=== PATIENT | male | born 1930 | race Caucasian/White ===

== ENCOUNTER 2016-07-23 17:20 | Inpatient (IN) ==
[2016-07-23] MEDS ORDERED: Levalbuterol Neb 1.25 MG/3 ML ONE (20:18)
[2016-07-23] MEDS ORDERED: Levalbuterol Neb 1.25 MG/3 ML IH ONE (20:20)
[2016-07-23] MEDS ORDERED: Nitroglycerin 0.4 MG TAB.SUBL SL PRN (20:37)
[2016-07-23] MEDS ORDERED: Naloxone 0.4 MG/ML INJ IVP PRN (20:39)
[2016-07-23 20:41] LABS: ABG Base Excess -3.6 mEq/L (-2.0 to 3.0); ABG HCO3 20.3 mEQ/L (21-27); ABG Oxygen Saturation 93 % (95-98); ABG PCO2 32 mmHg (35-45); ABG PH 7.41 pH Units (7.32-7.45); ABG PO2 65 mmHg (85-104); ABG TCO2 21.3 mEq/L (20-26); Blood Gas FiO2 32 %; Blood Gas Liter Flow 3 L/MIN
--- NOTE | 2016-07-23 20:47 | Internal Med History&Physical ---
Date of Encounter: 07/23/16 Time of Encounter: 20:41 Assessment and Plan (1) Atrial fibrillation with RVR Current visit: Yes Status: Acute Patient apparently had bradycardia at [facility] followed by tachycardia. Patient is mostly in atrial fib with RVR at this time. Treatment with Cardizem infusion. Will check a TSH level. Will consult manager government. Request echocardiogram. (2) Acute respiratory failure Current visit: Yes Status: Acute Likely secondary to pneumonia. Supplement Oxygen. Qualifiers: Respiratory failure complication: hypoxia Qualified Code(s): J96.01 - Acute respiratory failure with hypoxia (3) Pneumonia Current visit: Yes Status: Acute Patient has dysphagia and gastroesophageal reflux. I suspect patient may have aspirated. He also has a history of MRSA positive status - will treat with vancomycin, aztreonam and metronidazole (patient is allergic to penicillin). Sputum cultures and blood cultures. Qualifiers: Pneumonia type: aspiration pneumonia Aspiration pneumonia type: unspecified Laterality: left Lung location: lower lobe of lung Qualified Code(s): J69.0 - Pneumonitis due to inhalation of food and vomit (4) Dementia Current visit: Yes Status: Chronic Continue his home medications including donepezil and memantine. Qualifiers: Dementia type: unspecified type Dementia behavioral disturbance: without behavioral disturbance Qualified Code(s): F03.90 - Unspecified dementia without behavioral disturbance (5) Cirrhosis of liver Current visit: Yes Status: Chronic CT scan done at [facility] reported cirrhosis of liver, portal hypertension and ascites. Supportive care at this time - may need GI consult and medications prior to discharge. Qualifiers: Hepatic cirrhosis type: unspecified hepatic cirrhosis Ascites presence: with ascites Qualified Code(s): K74.60 - Unspecified cirrhosis of liver (6) Hypertension Current visit: Yes Status: Chronic Hold antihypertensive medications at this time. Qualifiers: Hypertension type: essential hypertension Qualified Code(s): I10 - Essential (primary) hypertension (7) UTI (urinary tract infection) Current visit: Yes Status: Acute Urinalysis in the [facility] was abnormal. Pt has beltran catheter - Urine cultures and will treat with aztreonam. Qualifiers: Urinary tract infection type: site unspecified Hematuria presence: without hematuria Qualified Code(s): N39.0 - Urinary tract infection, site not specified (8) Bronchitis Current visit: Yes Status: Acute Treat with levalbuterol; solumedrol. Continue antibiotics (9) DVT prophylaxis Current visit: Yes Status: Acute Subcutaneous heparin Internal Medicine - H&P: HPI Chief complaint: Cardiac arrhythmia Admitted From: Intrahospital Transfer Plans for Post Hospital Care: Home History of present illness: Mr. Burnett is a 86 year old male with past medical history significant for dementia, normocytic anemia, Fermin's esophagus, hypertension, schizophrenia, secondary parkinsonism, age related macular degeneration, carcinoma prostate, degenerative disc disease, myeloproliferative disorder. He is transferred from [facility] for cardiac arrhythmia. Patient is not able to give a significant clinical details possibly due to dementia. I have reviewed the records sent with the patient from the [facility]. Reports chest pain in the central chest, but is not able to characterize. Denies any radiation. Reports shortness of breath. Denies cough or expectation. Denies abdominal pain, nausea and vomiting. Detailed review of systems was difficult/not possible due to his dementia. Pt was not able to give family history. Reviewed the records from [facility] and summarized as below: Patient had some dysphagia and was evaluated by speech therapist at the [facility]. He was recommended dysphagia diet ground and nectar thick liquids; crush pills in applesauce bolus; constant supervision; upright position, slow feeding rate, used bolus size; avoid gulping liquids and extending the head and swallowing pills and to be careful with mixed consistencies taking liquids by liquids and solid bolus trials. Chest x-ray reported nonspecific right upper lobe opacity. Consider CT for further evaluation. Lungs are hypoinflated. Bilateral lower lobe linear atelectasis is present. CT scan of chest reported diffuse narrowing of the airways with mucus and diffuse bronchial wall thickening. This is consistent with bronchitis. Bronchoscopy may be helpful for further evaluation. Stable emphysema and scarring. Abnormal esophageal thickening at the base which may represent esophagitis and reflux, neoplasm cannot be excluded and endoscopy should be considered for further evaluation. Findings consistent with cirrhosis with ascites, splenomegaly and suspected lattice as such we did to portal hypertension. Labs showed from 07/22 and 07/23 showed: WBC of 18.9, hemoglobin 9.6, hematocrit 30, platelets 252. Urinalysis is positive for nitrates and leukocyte esterase. Serum sodium 140, potassium 3.5, glucose 113, BNP 24, creatinine 1.4, calcium 8, albumin 3, proBNP 2118, [address] [facility] appointed Burton Newman as guarding of person harmony dated 10/19/2007. I have contacted SCU at [facility] for the contact numbers for the guardian (Burton Newman) - [phone]; [phone]. I have called both the numbers at 21:52 but could not reach him on both the numbers. Discussed code status with the pt - he wants Full code. Past Med Surg Social Fam HX - Past Medical History Medical history: coronary artery disease, dementia, GERD, GI bleed, hypertension Psychiatric history: schizophrenia, other - Past Surgical History Surgical History: no surgical history - Social History Smoking Status: Never smoker Smokeless Tobacco Status: No Alcohol use: none Drug use: none Internal Medicine - H&P: Meds Amlodipine [Norvasc] 7.5 mg PO DAILY 12/02/15 [History] Anagrelide HCl [Agrylin] 1 mg PO BID 12/02/15 [History] Cholecalciferol (Vitamin D3) 400 units PO DAILY 12/02/15 [History] Donepezil [Aricept] 10 mg PO HS 12/02/15 [History] Ferrous Gluconate 325 mg PO DAILY 12/02/15 [History] Melatonin [Melatin] 3 mg PO HS 12/02/15 [History] Memantine [Namenda] 5 mg PO BID 12/02/15 [History] Metoprolol [Lopressor] 12.5 mg PO BID 12/02/15 [History] Pantoprazole Sodium [Protonix] 20 mg PO BID 12/02/15 [History] RisperiDONE [Risperidone Odt] 3 mg PO HS 12/02/15 [History] Tamsulosin [Flomax] 0.4 mg PO DAILY 12/02/15 [History] Acetaminophen [Non-Aspirin] 650 mg PO Q4H PRN 07/23/16 [History] Ipratropium/Albuterol Neb [Duoneb] 3 ml IH Q6HR 07/23/16 [History] Potassium Chloride [K-Tab ER] 20 meq PO DAILY 07/23/16 [History] Sennosides/Docusate Sodium [Senna-Docusate Sodium Tablet] 2 tab PO DAILY [History] Allergies Penicillins [PCN] Allergy (Verified 12/02/15 09:34) See Comments Unknown reaction. ROS unobtainable: due to mental status All Systems PM: A 10-system review of systems was attempted but could not be completed due to his dementia - Constitutional Vitals: Temp Pulse Resp BP Pulse Ox 98.0 F 56 26 145/86 95 07/23/16 18:45 07/23/16 20:20 07/23/16 20:25 07/23/16 20:05 07/23/16 20:25 Exam: General: Tremulous. Pt has tremors at rest and with activity HEENT: Oral mucosa is moist. No conjunctival palor or scleral icterus Neck: No obvious neck swellings Lungs: Occasional wheeze present. Bilateral basal crackles present Cardiac: Irregular rate and rhythm. No significant murmurs Abdomen: Distended, non tender. Bowel sounds present Genitourinary: Beltran catheter present Neurological: Alert and able to follow commands. No gross localizing deficits Psych: Not aggressive or agitated Extremities: no significant leg edema Skin: No generalized rash Internal Med - H&P Results - Labs CBC & Chem 7: 07/23/16 21:20 07/23/16 21:20 - EKG Data -: EKG Interpreted by Myself - EKG Data EKG comments: Atrial fibrillation with RVR with heart rate 130 07/23/16 22:50 - Impressions ITS Impressions Chest X-Ray 07/23/16 20:34 IMPRESSION: Alveolar airspace opacities in the left lower lobe. D/ / Carlos Pratt MD / Carlos Pratt MD Interpreting Provider: Carlos Pratt MD
[2016-07-23] MEDS ORDERED: Vancomycin 1,000 MG in D5% in Water 250 ML IVPB SCH (21:08)
[2016-07-23 21:28] LABS: Basophils % 0.3 %; Eosinophils # 0.1 K/mcL (0.0-0.6); Eosinophils % 1.2 %; Hematocrit 30.7 % (37.5-50.1); Hemoglobin 9.8 g/dL (12.9-16.9); Immature Granulocytes % 1.3 % (0-4); Lymphocytes # 0.4 K/mcL (0.6-4.6); Lymphocytes % 3.8 %; Mean Corpuscular HGB Conc 31.9 g/dL (31.6-35.5); Mean Corpuscular Hemoglobin 25.1 pg (28.0-33.3); Mean Corpuscular Volume 78.5 fL (83.0-100.0); Mean Platelet Volume 12.1 fL (9.4-12.4); Monocytes # 0.8 K/mcL (0.0-1.3); Monocytes % 7.3 %; Neutrophils # 9.8 K/mcL (1.6-8.9); Platelet Count 251 K/mcL (140-400); Red Blood Count 3.91 M/mcL (4.19-5.50); Red Cell Distribution Width 17.8 % (11.5-14.5); Segmented Neutrophils % 86.1 %
[2016-07-23 21:41] LABS: Calcium 8.6 mg/dL (8.6-10.8); Magnesium 1.6 mg/dL (1.6-2.6); Potassium 4.5 mEq/L (3.5-4.5)
[2016-07-23] MEDS ORDERED: Levalbuterol Neb 1.25 MG/3 ML IH PRN (21:46)
[2016-07-23] MEDS ORDERED: 0.9 % Sodium Chloride 500 ML IVC ONE (21:46)
[2016-07-23 22:05] LABS: Thyroid Stimulating Hormone 3.042 mcIU/mL (0.350-4.840)
[2016-07-23] MEDS: risperiDONE 1 MG TABLET PO SCH (22:22)
[2016-07-23] MEDS ORDERED: Vancomycin 1,250 MG in D5% in Water 250 ML IVPB ONE (22:30)
[2016-07-23] MEDS ORDERED: Magnesium Sulfate 1 GM in D5% in Water 100 ML IVPB ONE (22:41)
[2016-07-23] MEDS: 0.9 % Sodium Chloride 1,000 ML IVC SCH (23:41)
[2016-07-23] MEDS: *HR* Heparin 5,000 UNIT/ML VIAL SQ SCH (23:42)
[2016-07-24 00:55] LABS: INR 1.9; Prothrombin Time 20.4 Seconds (9.4-12.1)
[2016-07-24 01:01] LABS: Albumin 2.7 g/dL (3.5-5.0); Albumin/Globulin Ratio 0.7 (1.1-2.2); Bilirubin,Total 0.6 mg/dL (0.2-1.2); Calcium 8.8 mg/dL (8.6-10.8); Globulin 3.8 g/dL (2.4-3.5); Potassium 3.8 mEq/L (3.5-4.5); Total Protein 6.5 g/dL (6.0-8.3)
[2016-07-24 01:04] LABS: Bilirubin,Urine Negative (Negative); Blood,Urine Large (Negative); Clarity,Urine Turbid (Clear); Color,Urine Yellow (Yellow); Glucose,Urine (UA) Normal (Normal); Ketones,Urine 15 mg/dL (Negative); Leukocyte Esterase,Urine Large (Negative); Nitrite,Urine Negative (Negative); PH,Urine 5.5 pH Units (5.0-8.0); Protein,Urine 100 mg/dL (Neg-Trace); Specific Gravity,Urine 1.022 (1.010-1.025); Urobilinogen,Urine Normal (Normal)
[2016-07-24 01:07] LABS: Bacteria,Urine Many per hpf (None-Few); Hyaline Casts,Urine None Seen per lpf (None-Few); RBC,Urine 30-50 per hpf (0-3); Squamous Epithelial Cell,Urine Many per lpf (None-Few); WBC,Urine TNTC per hpf (0-3)
[2016-07-24] MEDS: *HR* Heparin 5,000 UNIT/ML VIAL SQ SCH (06:14)
[2016-07-24] MEDS: Lactobacillus 1 EACH CAP.SPRINK PO SCH ×2 (08:09→20:15)
[2016-07-24] MEDS: Pantoprazole 40 MG VIAL IVP SCH (08:57)
--- NOTE | 2016-07-24 10:00 | Cardiology Consult Note ---
Date of Encounter: 07/24/16 Time of Encounter: 09:30 Assessment and Plan (1) Atrial fibrillation with RVR Current Visit: Yes Status: Acute Patient found to have Afib RVR, HR initially 140s-150s, currently between 95- 110. Etiology likely secondary to pneumonia. CHADS/Vasc score: 3- moderate to high risk. Per [place] records, patient has no prior hx of Afib listed. Patient is on Cardizem drip running at 7.5 TSH normal- 3.042 Echo pending. Continue ABX for pneumonia. (2) Hypertension Current Visit: Yes Status: Chronic Antihypertensive meds on hold at this time. Qualifiers: Hypertension type: essential hypertension Qualified Code(s): I10 - Essential (primary) hypertension Discussion w patient/family: The assessment and plan as outlined above was discussed with the patient and/or family members who expressed understanding and agreement. All questions were answered. Thank you for involving us in the care of your patient. Please call with any questions. History of Present Illness Consult date: 07/23/16 Requesting physician: Kalen Thompson Consult reason: Afib RVR Chief complaint: cardiac arrhythmia History of present illness: Mr. Burnett is a 86 year old male with PMHx of dementia, normocytic anemia, barrets esophagus, HTN, schizophrenia, secondary parkinsonism, macular degeneration, prostate cancer, degeneraative disc disease, myoproliferative disorder. Patient was transferred from [facility] for cardiac arrhythmia. Patient is a poor historian. Patient was bardycardic at [facility], and had tachycardia afterwards. Patient was found to have pneumonia, possibly due to aspiration. He is on vanc, aztreonam, metronidazole. Past Med Surg Social Fam HX - Past Medical History Medical history: coronary artery disease, dementia, GERD, GI bleed, hypertension Psychiatric history: schizophrenia, other - Past Surgical History Surgical History: no surgical history - Social History Smoking Status: Never smoker Smokeless Tobacco Status: No Alcohol use: none Drug use: none Medications and Allergies Amlodipine [Norvasc] 7.5 mg PO DAILY 12/02/15 [History] Anagrelide HCl [Agrylin] 1 mg PO BID 12/02/15 [History] Cholecalciferol (Vitamin D3) 400 units PO DAILY 12/02/15 [History] Donepezil [Aricept] 10 mg PO HS 12/02/15 [History] Ferrous Gluconate 325 mg PO DAILY 12/02/15 [History] Melatonin [Melatin] 3 mg PO HS 12/02/15 [History] Memantine [Namenda] 5 mg PO BID 12/02/15 [History] Metoprolol [Lopressor] 12.5 mg PO BID 12/02/15 [History] Pantoprazole Sodium [Protonix] 20 mg PO BID 12/02/15 [History] RisperiDONE [Risperidone Odt] 3 mg PO HS 12/02/15 [History] Tamsulosin [Flomax] 0.4 mg PO DAILY 12/02/15 [History] Acetaminophen [Non-Aspirin] 650 mg PO Q4H PRN 07/23/16 [History] Ipratropium/Albuterol Neb [Duoneb] 3 ml IH Q6HR 07/23/16 [History] Potassium Chloride [K-Tab ER] 20 meq PO DAILY 07/23/16 [History] Sennosides/Docusate Sodium [Senna-Docusate Sodium Tablet] 2 tab PO DAILY [History] Allergies Penicillins [PCN] Allergy (Verified 12/02/15 09:34) See Comments Unknown reaction. All Systems Review: A 10-system review of systems was performed and is negative for pertinent findings except as documented above in the HPI. - Constitutional Constitutional: no chills, no fatigue, no fever(s), no headache(s) - Cardiovascular Cardiovascular: no chest pain at rest, no leg edema, no syncope - Respiratory Respiratory: other (reports shortness of breath. ) - Neurological Neurological: no dizziness Physical Examination Vital Signs, Last 4 Hours Temp Pulse Resp BP Pulse Ox 07/24/16 08:59 128/64 07/24/16 07:30 98 07/24/16 07:16 98.5 F 96 18 134/67 92 L General: Conversant, Other (patient is a poor historian. ) HEENT: Atraumatic, Normocephaly Neck: No JVD Cardiac: Other (irregular rhythm. ) Abdomen: Soft, Non-Tender Musculoskeletal: No Chest Wall Tenderness Extremities: No Clubbing, No Cyanosis, No Edema Results 07/23/16 21:20 07/24/16 00:39 Lab Results 07/23/16 07/23/16 07/23/16 21:20 21:20 21:20 WBC 11.4 H Hgb 9.8 L Hct 30.7 L Plt Count 251 INR Sodium 138 Potassium 4.5 Chloride 108 Carbon Dioxide 17 L BUN 26 Creatinine 1.37 H Glucose 173 H Calcium 8.6 Magnesium 1.6 Total Bilirubin AST ALT Alkaline Phosphatase Troponin I 0.01 TSH 3.042 07/24/16 07/24/16 00:39 00:39 WBC Hgb Hct Plt Count INR 1.9 Sodium 138 Potassium 3.8 Chloride 110 H Carbon Dioxide 19 BUN 27 H Creatinine 1.42 H Glucose 173 H Calcium 8.8 Magnesium Total Bilirubin 0.6 AST 16 ALT 8 Alkaline Phosphatase 105 Troponin I TSH Consult Discharge Plan - Plan [facility]errals: [facility] [Primary Care Provider] -
--- NOTE | 2016-07-24 11:51 | Internal Med Progress Note ---
Date of Encounter: 07/24/16 Time of Encounter: 11:51 - Assessment and plan (1) Acute respiratory failure Current Visit: Yes Status: Acute Assessment and plan: likely due to Pneumonia and tachycardia; continue supplemental O2 as needed and wean down FiO2 ad tolerated; Qualifiers: Respiratory failure complication: hypoxia Qualified Code(s): J96.01 - Acute respiratory failure with hypoxia (2) Atrial fibrillation with RVR Current Visit: Yes Status: Acute Assessment and plan: New-onset, could be due to underlying Pneumonia; Noted to be on IV Cardizem drip , will start oral Cardizem and taper down the drip. Will start IV Heparin drip for anticoagulation; f/up Echocardiogram and Cardiology consult; TSH noted to be normal; (3) Pneumonia Current Visit: Yes Status: Acute Assessment and plan: Imaging shows left upper lobe in filtrates; continue broad spectrum IV antibiotics- Vancomycin, Aztreonam and Flagyl for possible component of aspiration; supportive care and supplemental O2; f/up blood cultures; Swallow evaluation completed and recommend pureed diet with nectar thick liquids; Qualifiers: Pneumonia type: due to unspecified organism Laterality: left Lung location: upper lobe of lung Qualified Code(s): J18.1 - Lobar pneumonia, unspecified organism (4) UTI (urinary tract infection) Current Visit: Yes Status: Acute Assessment and plan: continue IV ANTIBIOTICS and f/up urine culture; Qualifiers: Urinary tract infection type: site unspecified Hematuria presence: without hematuria Qualified Code(s): N39.0 - Urinary tract infection, site not specified (5) Cirrhosis of liver Current Visit: Yes Status: Chronic Qualifiers: Hepatic cirrhosis type: unspecified hepatic cirrhosis Ascites presence: with ascites Qualified Code(s): K74.60 - Unspecified cirrhosis of liver (6) Dementia Current Visit: Yes Status: Chronic Assessment and plan: supportive care and fall precautions; continue home meds; Qualifiers: Dementia type: Alzheimer's disease Alzheimer's disease onset: late-onset Dementia behavioral disturbance: without behavioral disturbance Qualified Code (s): G30.1 - Alzheimer's disease with late onset; F02.80 - Dementia in other diseases classified elsewhere without behavioral disturbance (7) Hypertension Current Visit: Yes Status: Chronic Qualifiers: Hypertension type: essential hypertension Qualified Code(s): I10 - Essential (primary) hypertension - Subjective Interval history: Able to tell me his name and thinks that he is in the [facility] in [place]. Reports no pain, shortness of breath, dysphagia. Does not remember why he came to the hospital. - Constitutional Vitals: Temp Pulse Resp BP Pulse Ox 98.5 F 98 18 128/64 92 L 07/24/16 07:16 07/24/16 07:30 07/24/16 07:16 07/24/16 08:59 07/24/16 07:16 General appearance: Present: A&O X 1 - Respiratory Respiratory exam: Present: CTAB. Absent: accessory muscle use, rales, rhonchi, wheezes - Cardiovascular Cardiovascular exam: Present: irregular rhythm, +S1, +S2. Absent: diastolic murmur, gallop, rubs, systolic murmur - GI/Abdominal GI/Abdominal exam: Present: distended (With tympanic note), normal bowel sounds , soft, no peritoneal signs. Absent: tenderness - Extremities Exam Extremities exam: Present: full ROM, warm, radial pulses palpable and symetrical. Absent: calf tenderness, cyanotic, pedal edema - Neurological Exam Neurological exam: Present: CN II-XII intact, no focal deficits. Absent: pronater drift, facial droop, speech deficit - Skin Skin exam: Present: dry, intact Internal Medicine: Result - Labs CBC & Chem 7: 07/24/16 12:20 07/24/16 00:39 Labs: Short CBC 07/23/16 Range/Units 21:20 WBC 11.4 H (4.3-11.1) K/mcL Hgb 9.8 L (12.9-16.9) g/dL Hct 30.7 L (37.5-50.1) % Plt Count 251 (140-400) K/mcL Neutrophils # 9.8 H (1.6-8.9) K/mcL BMP 07/23/16 07/24/16 21:20 00:39 Sodium 138 138 Potassium 4.5 3.8 Chloride 108 110 H Carbon Dioxide 17 L 19 BUN 26 27 H Creatinine 1.37 H 1.42 H Glucose 173 H 173 H Calcium 8.6 8.8 Cardiac Enzymes 07/23/16 Range/Units 21:20 Troponin I 0.01 (0-0.03) ng/mL Liver Function 07/24/16 Range/Units 00:39 Total Bilirubin 0.6 (0.2-1.2) mg/dL AST 16 (5-34) Units/L ALT 8 (0-55) Units/L Alkaline Phosphatase 105 (38-126) Units/L Albumin 2.7 L (3.5-5.0) g/dL Urine 07/24/16 Range/Units 00:50 Urine Color Yellow (Yellow) Urine Clarity Turbid A (Clear) Urine pH 5.5 (5.0-8.0) pH Units Ur Specific Viking 1.022 (1.010-1.025) Urine Protein 100 H (Neg-Trace) mg/dL Urine Glucose (UA) Normal (Normal) mg/dL - ABG Interpretation ABG results: ABG ABG pH 7.41 pH Units (7.32-7.45) 07/23/16 20:25 ABG pCO2 32 mmHg (35-45) L 07/23/16 20:25 ABG pO2 65 mmHg (85-104) L 07/23/16 20:25 ABG O2 Saturation 93 % (95-98) L 07/23/16 20:25 PT/INR, D-dimer PT 20.4 Seconds (9.4-12.1) H 07/24/16 00:39 - Impressions Impressions Chest X-Ray 07/23/16 20:34 IMPRESSION: Alveolar airspace opacities in the left lower lobe. D/ / Carlos Pratt MD / Carlos Pratt MD Interpreting Provider: Carlos Pratt MD Consult Discharge Plan - Plan [facility]errals: [facility] [Primary Care Provider] -
[2016-07-24] MEDS ORDERED: *HR* Heparin 5,000 UNIT/ML VIAL IVP ONE (11:54)
[2016-07-24] MEDS ORDERED: *HR* Heparin 5,000 UNIT/ML VIAL IVP PRN ×2 (11:54)
[2016-07-24] MEDS ORDERED: Heparin 25,000 UNIT/500 ML D5W 25,000 UNIT/500 ML MLS IVC SCH (12:00)
[2016-07-24 12:58] LABS: INR 1.8; Prothrombin Time 19.7 Seconds (9.4-12.1)
[2016-07-24 13:00] LABS: Activated Partial Thrombo Time 31.9 Seconds (26.0-36.0)
[2016-07-24] MEDS ORDERED: Vancomycin 1,000 MG in D5% in Water 250 ML IVPB ONE ×2 (13:00→13:07)
[2016-07-24 13:04] LABS: Hematocrit 29.1 % (37.5-50.1); Hemoglobin 9.4 g/dL (12.9-16.9); Mean Corpuscular HGB Conc 32.3 g/dL (31.6-35.5); Mean Corpuscular Hemoglobin 25.4 pg (28.0-33.3); Mean Corpuscular Volume 78.6 fL (83.0-100.0); Mean Platelet Volume 12.5 fL (9.4-12.4); Platelet Count 255 K/mcL (140-400); Red Cell Distribution Width 17.8 % (11.5-14.5)
[2016-07-24] MEDS: Aztreonam 1,000 MG in D5% in Water (Mini-Bag+) 100 ML IVPB SCH ×2 (13:17→20:16)
[2016-07-24] MEDS: 0.9 % Sodium Chloride 1,000 ML IVC SCH (13:18)
[2016-07-24] MEDS: MetroNIDAZOLE 500 MG/100 ML 500 MG/100 ML BAG IVPB SCH ×2 (13:42→20:15)
--- NOTE | 2016-07-24 14:16 | ECHO - Doppler Report ---
Echocardiogram Name: Gen Burnett Date of Study: 07/24/2016 Date: 1930 Ht: 70.0 in Medical Record#: [id number] Age: 86 Wt: 136.0 lb Gender: Male BSA: 1.77 Order #: [id number] Location: [facility] Room #: 2N09 Reading Physician: Marc An MD, [facility] Programming Internship: Robin Andrews RN Ordering Physician: Ivelisse Thompson MD Primary Physician: [facility] Indications: Arrhythmia Impressions: Sinus rhythm with frequent PACs and occasional PVCs. Normal LV systolic function, LVEF 60%. Mild left ventricular diastolic dysfunction. Dilated right ventricle with normal function. Mildly dilated left atrium. Mildly dilated right atrium. Mild tricuspid regurgitation. Mild pulmonary hypertension. Estimated RVSP = 41 mmHg. Left Ventricular Wall Motion: Rest Echo Findings All wall segments showed normal motion. Findings: Study Quality * Technically adequate exam. ECG Findings * Sinus rhythm with frequent PACs and occasional PVCs. Left Ventricle * Normal LV systolic function, LVEF 60%. * Normal LV chamber size and wall thickness. * Mild left ventricular diastolic dysfunction. Right Ventricle * Dilated right ventricle with normal function. Left Atrium * Mildly dilated left atrium. Right Atrium * Mildly dilated right atrium. Aorta * Normally sized aortic root. Pericardium * There is no pericardial effusion present. IVC * The IVC is mildly dilated. * > 50% respiratory change Tricuspid Valve * Normal tricuspid valve structure. * No tricuspid stenosis. * Mild tricuspid regurgitation. * Mild pulmonary hypertension. Estimated RVSP = 41 mmHg. Aortic Valve * Trileaflet aortic valve. * Moderately sclerotic aortic valve leaflets. * No aortic stenosis. * Trace aortic regurgitation. Pulmonic Valve * Pulmonic valve is not well visualized. * No pulmonic stenosis. * No pulmonic regurgitation. Mitral Valve * Mildly calcified mitral valve leaflets. * No mitral stenosis. * Trace mitral regurgitation. History Hypertension 08/09/2014 a Previous Echo was performed. Measurements: BP: 128/ 64 2D Normal Values IVSd: 1.00 cm 0.6 - 1.0 cm LVIDd: 4.30 cm 3.7 - 5.6 cm LVPWd: 1.00 cm 0.6 - 1.1 cm LVIDs: 3.00 cm 1.5 - 3.6 cm AO: 3.20 cm < 4.0 cm %FS: 30.20 cm >25 % LA volume: 62 Mitral Valve Peak E:.89 m/sec Peak A:1.26 m/sec E/A Ratio:0.7 Tricuspid Valve TV Regurg Peak Grad: 33.00mmHg TV Regurg Peak Roman: 2.85m/sec Updated by Marc An MD, [facility] on 07/24/2016 2:10:11 PM electronically signed on 07/24/2016 2:11:52 PM with status of Final Wall Motion Rothman: 1=Normal, 2=Hypokinesis, 3=Akinesis, 4=Dyskinesis, 5=Aneurysmal, 6=Hyperkinetic, X=Not Visualized (Blank)=Missing
[2016-07-24] MEDS ORDERED: D5% in Water 250 ML ONE (15:39)
--- NOTE | 2016-07-24 16:06 | Electrocardiograph Report ---
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
[2016-07-24] MEDS: risperiDONE 1 MG TABLET PO SCH (20:15)
[2016-07-24] MEDS ORDERED: Aztreonam 1,000 MG in D5% in Water (Mini-Bag+) 100 ML IVPB SCH (21:08)
[2016-07-24] MEDS ORDERED: MetroNIDAZOLE 500 MG/100 ML 500 MG/100 ML BAG IVPB SCH (21:08)
[2016-07-24] MEDS ORDERED: MethylPREDNISolone 40 MG/ML VIAL IVP SCH (23:12)
[2016-07-25] MEDS: Aztreonam 1,000 MG in D5% in Water (Mini-Bag+) 100 ML IVPB SCH ×3 (03:47→20:34)
[2016-07-25] MEDS: 0.9 % Sodium Chloride 1,000 ML IVC SCH ×2 (03:47→09:23)
[2016-07-25] MEDS: MetroNIDAZOLE 500 MG/100 ML 500 MG/100 ML BAG IVPB SCH (03:48)
[2016-07-25 06:11] LABS: BUN/Creatinine Ratio 19 (6-26); Calcium 7.8 mg/dL (8.6-10.8); Carbon Dioxide 19 mEq/L (19-29); Chloride 105 mEq/L (98-109); Glucose 152 mg/dL (70-99); Osmolality,Calculated 284 (280-300); Sodium 135 mEq/L (136-145); eGFR For African Americans > 60 (> 60); eGFR For Non-African Americans > 60 (> 60)
[2016-07-25 06:12] LABS: Blood Urea Nitrogen 16 mg/dL (8-26); Potassium 2.7 mEq/L (3.5-4.5)
[2016-07-25 07:04] LABS: Basophils # 0.1 K/mcL (0.0-0.2); Basophils % 0.4 %; Eosinophils # 0.2 K/mcL (0.0-0.6); Eosinophils % 1.3 %; Hemoglobin 8.8 g/dL (12.9-16.9); Immature Granulocytes % 2.2 % (0-4); Immature Platelets 18.1 % (1.1-6.1); Lymphocytes # 0.5 K/mcL (0.6-4.6); Lymphocytes % 3.7 %; Mean Corpuscular HGB Conc 32.6 g/dL (31.6-35.5); Mean Corpuscular Hemoglobin 24.7 pg (28.0-33.3); Mean Corpuscular Volume 75.8 fL (83.0-100.0); Mean Platelet Volume 12.4 fL (9.4-12.4); Monocytes # 0.9 K/mcL (0.0-1.3); Monocytes % 5.8 %; Platelet Count 269 K/mcL (140-400); Red Blood Count 3.56 M/mcL (4.19-5.50); Red Cell Distribution Width 17.6 % (11.5-14.5); Segmented Neutrophils % 86.6 %
[2016-07-25 07:11] LABS: Neutrophils # 12.7 K/mcL (1.6-8.9)
[2016-07-25] MEDS ORDERED: Aminoglycoside Consult 1 EACH MC ONE (07:42)
[2016-07-25 08:02] LABS: Platelet Estimate Normal (Normal); Reactive Lymphocytes Present (Not Present)
--- NOTE | 2016-07-25 09:02 | Cardiology Progress Note ---
Date of Encounter: 07/25/16 Time of Encounter: 08:23 Assessment and Plan (1) Multifocal atrial tachycardia Current Visit: Yes Status: Acute MAT, HR initially 140s-150s, currently between 90-105. Etiology likely secondary to pneumonia. Echo from yesterday showed sinus rhyth with frequent PACs and occasional PVCs, normal LV systolic function, LVEF 60%, mild LV diastolic dysfunction, dilated RV with normal function. TSH normal- 3.042 Echo pending. Continue ABX for pneumonia. Plan: stopped Heparin drip, switched to SQ heparin Changed Cardizem to PO 180 daily. HR was running in 90s this AM, continue to titrate cardizem as needed. No further interventions needed at this time. Cardiology signing off. Please re-consult PRN (2) Hypertension Current Visit: Yes Status: Chronic management per primary team. Qualifiers: Hypertension type: essential hypertension Qualified Code(s): I10 - Essential (primary) hypertension Discussion w patient/family: The assessment and plan as outlined above was discussed with the patient and/or family members who expressed understanding and agreement. All questions were answered. Thank you for involving us in the care of your patient. Please call with any questions. Subjective Principal diagnosis: multifocal atrial tachycardia Interval history: 86 year old male evaluated at bedside. Patient was sitting up in bed and eating while he was getting speech evaluation. He denies chest pain. Reports some mild nausea, but has not had any vomiting. Objective Vital Signs, Last 4 Hours Temp Pulse Resp BP Pulse Ox 07/25/16 07:42 97.7 F 92 20 134/77 98 General: Conversant, No Apparent Distress HEENT: Atraumatic, Normocephaly Neck: No JVD Cardiac: Other (irregular rhythm) Lungs: Normal Breath Sounds Neuro: Alert and responsive Abdomen: Soft, Non-Tender Extremities: No Cyanosis, No Edema Results 07/25/16 06:42 07/25/16 04:44 Lab Results 07/24/16 07/24/16 07/24/16 12:20 12:20 18:53 WBC 17.2 H D Hgb 9.4 L Hct 29.1 L Plt Count 255 INR 1.8 APTT 31.9 46.4 H Sodium Potassium Chloride Carbon Dioxide BUN Creatinine Glucose Calcium 07/25/16 07/25/16 04:44 06:42 WBC 14.7 H Hgb 8.8 L Hct 27.0 L Plt Count 269 INR APTT Sodium 135 L Potassium 2.7 L D Chloride 105 Carbon Dioxide 19 BUN 16 D Creatinine 0.85 Glucose 152 H Calcium 7.8 L Consult Discharge Plan - Plan [facility]errals: [facility] [Primary Care Provider] -
[2016-07-25] MEDS: Lactobacillus 1 EACH CAP.SPRINK PO SCH ×2 (09:22→20:35)
[2016-07-25] MEDS: predniSONE 20 MG TABLET PO SCH (09:22)
[2016-07-25] MEDS: Pantoprazole 40 MG VIAL IVP SCH (09:22)
[2016-07-25] MEDS: Diltiazem CD (24hr) 180 MG CAPSULE PO SCH (09:22)
--- NOTE | 2016-07-25 10:07 | Internal Med Progress Note ---
Date of Encounter: 07/25/16 Time of Encounter: 10:05 - Assessment and plan (1) Acute respiratory failure Current Visit: Yes Status: Resolved Assessment and plan: Currently saturating well on room air. Qualifiers: Respiratory failure complication: hypoxia Qualified Code(s): J96.01 - Acute respiratory failure with hypoxia (2) Atrial fibrillation with RVR Current Visit: Yes Status: Ruled-out Assessment and plan: Cardiology consult and follow-up appreciated. Patient seems to have multiple PACs and PVCs and possible multifocal atrial tachycardia, atrial fibrillation has been ruled out. Discontinue anticoagulation with IV heparin drip. Heart rate seems to be better controlled than yesterday. Cardizem changed to Cardizem CD 180 mg daily. Echocardiogram shows preserved ejection fraction, mild left ventricular diastolic dysfunction, mild biatrial dilation, mild tricuspid regurgitation and pulmonary hypertension. Continue telemetry monitoring and supportive care. (3) Pneumonia Current Visit: Yes Status: Acute Assessment and plan: Imaging shows left upper lobe infiltrates; improving oxygen requirements. Blood cultures remain negative so far. Continue aztreonam and hold vancomycin and Flagyl at this time. supportive care ; Swallow evaluation repeated, advanced to mechanical soft diet with nectar thick liquids, which is his baseline. Continue bronchodilators as needed and taper down oral steroids as tolerated. Patient has no documented COPD. Qualifiers: Pneumonia type: due to unspecified organism Laterality: left Lung location: upper lobe of lung Qualified Code(s): J18.1 - Lobar pneumonia, unspecified organism (4) UTI (urinary tract infection) Current Visit: Yes Status: Acute Assessment and plan: Preliminary urine culture grows gram-negative rods. Continue IV aztreonam for now and follow up final culture results. Qualifiers: Urinary tract infection type: site unspecified Hematuria presence: without hematuria Qualified Code(s): N39.0 - Urinary tract infection, site not specified (5) Cirrhosis of liver Current Visit: Yes Status: Chronic Qualifiers: Hepatic cirrhosis type: unspecified hepatic cirrhosis Ascites presence: with ascites Qualified Code(s): K74.60 - Unspecified cirrhosis of liver (6) Dementia Current Visit: Yes Status: Chronic Assessment and plan: supportive care and fall precautions; continue home meds; Qualifiers: Dementia type: Alzheimer's disease Alzheimer's disease onset: late-onset Dementia behavioral disturbance: without behavioral disturbance Qualified Code (s): G30.1 - Alzheimer's disease with late onset; F02.80 - Dementia in other diseases classified elsewhere without behavioral disturbance (7) Hypertension Current Visit: Yes Status: Chronic Qualifiers: Hypertension type: essential hypertension Qualified Code(s): I10 - Essential (primary) hypertension (8) Hypokalemia Current Visit: Yes Status: Acute Assessment and plan: Replace with oral and IV potassium chloride and repeat potassium in a.m. - Subjective Interval history: Reports feeling well. No chest pain, shortness of breath or palpitations. - Constitutional Vitals: Temp Pulse Resp BP Pulse Ox 97.7 F 92 20 134/77 98 07/25/16 07:42 07/25/16 07:42 07/25/16 07:42 07/25/16 07:42 07/25/16 07:42 General appearance: Present: A&O X 1 - Respiratory Respiratory exam: Present: CTAB. Absent: accessory muscle use, rales, rhonchi, wheezes - Cardiovascular Cardiovascular exam: Present: irregular rhythm, RRR, +S1, +S2, tachycardia. Absent: diastolic murmur, gallop, rubs, systolic murmur - GI/Abdominal GI/Abdominal exam: Present: normal bowel sounds, soft, no peritoneal signs. Absent: distended, tenderness - Extremities Exam Extremities exam: Present: full ROM, warm, radial pulses palpable and symetrical. Absent: calf tenderness, cyanotic, pedal edema Internal Medicine: Result - Labs CBC & Chem 7: 07/25/16 06:42 07/25/16 04:44 Labs: Short CBC 07/24/16 07/25/16 Range/Units 12:20 06:42 WBC 17.2 H D 14.7 H (4.3-11.1) K/mcL Hgb 9.4 L 8.8 L (12.9-16.9) g/dL Hct 29.1 L 27.0 L (37.5-50.1) % Plt Count 255 269 (140-400) K/mcL Neutrophils # 12.7 H (1.6-8.9) K/mcL BMP 07/25/16 04:44 Sodium 135 L Potassium 2.7 L D Chloride 105 Carbon Dioxide 19 BUN 16 D Creatinine 0.85 Glucose 152 H Calcium 7.8 L - ABG Interpretation ABG results: ABG ABG pH 7.41 pH Units (7.32-7.45) 07/23/16 20:25 ABG pCO2 32 mmHg (35-45) L 07/23/16 20:25 ABG pO2 65 mmHg (85-104) L 07/23/16 20:25 ABG O2 Saturation 93 % (95-98) L 07/23/16 20:25 PT/INR, D-dimer PT 19.7 Seconds (9.4-12.1) H 07/24/16 12:20 Consult Discharge Plan - Plan [facility]errals: [facility] [Primary Care Provider] -
[2016-07-25] MEDS: Potassium Chloride Elixir 20 MEQ/15 ML UDC PO SCH ×2 (10:27→13:42)
[2016-07-25 10:37] LABS: Magnesium 1.4 mg/dL (1.6-2.6)
[2016-07-25] MEDS ORDERED: Magnesium Sulfate 2 GM in D5% in Water 100 ML IVPB ONE (17:53)
[2016-07-25] MEDS: *HR* Heparin 5,000 UNIT/ML VIAL SQ SCH (17:55)
[2016-07-25] MEDS: risperiDONE 1 MG TABLET PO SCH (20:35)
[2016-07-26 05:18] LABS: INR 1.4; Prothrombin Time 15.6 Seconds (9.4-12.1)
[2016-07-26 05:20] LABS: Activated Partial Thrombo Time 25.2 Seconds (26.0-36.0)
[2016-07-26 06:24] LABS: BUN/Creatinine Ratio 18 (6-26); Blood Urea Nitrogen 16 mg/dL (8-26); Calcium 8.4 mg/dL (8.6-10.8); Carbon Dioxide 24 mEq/L (19-29); Chloride 105 mEq/L (98-109); Glucose 154 mg/dL (70-99); Magnesium 1.9 mg/dL (1.6-2.6); Osmolality,Calculated 288 (280-300); Potassium 3.2 mEq/L (3.5-4.5); Sodium 137 mEq/L (136-145); eGFR For African Americans > 60 (> 60); eGFR For Non-African Americans > 60 (> 60)
[2016-07-26] MEDS: Diltiazem CD (24hr) 180 MG CAPSULE PO SCH (08:23)
[2016-07-26] MEDS: Lactobacillus 1 EACH CAP.SPRINK PO SCH ×2 (08:23→20:47)
[2016-07-26] MEDS: predniSONE 20 MG TABLET PO SCH (08:24)
[2016-07-26] MEDS ORDERED: Potassium Chloride Elixir 20 MEQ/15 ML UDC PO ONE (09:51)
--- NOTE | 2016-07-26 10:10 | Internal Med Progress Note ---
Date of Encounter: 07/26/16 Time of Encounter: 10:09 - Assessment and plan (1) Acute respiratory failure Current Visit: Yes Status: Resolved Qualifiers: Respiratory failure complication: hypoxia Qualified Code(s): J96.01 - Acute respiratory failure with hypoxia (2) Atrial fibrillation with RVR Current Visit: Yes Status: Ruled-out Assessment and plan: Continues to have intermittent asymptomatic tachycardia. Cardiology consult and follow-up appreciated. Patient seems to have multiple PACs and PVCs and possible multifocal atrial tachycardia, atrial fibrillation has been ruled out. Continue Cardizem. Continue telemetry monitoring and supportive care. (3) Pneumonia Current Visit: Yes Status: Acute Assessment and plan: Imaging shows left upper lobe infiltrates; improving oxygen requirements. Blood cultures remain negative so far. Continue aztreonam; supportive care ; Swallow evaluation repeated, advanced to mechanical soft diet with nectar thick liquids, which is his baseline. Continue bronchodilators as needed and oral steroids. Patient has no documented COPD. Qualifiers: Pneumonia type: due to unspecified organism Laterality: left Lung location: upper lobe of lung Qualified Code(s): J18.1 - Lobar pneumonia, unspecified organism (4) UTI (urinary tract infection) Current Visit: Yes Status: Acute Assessment and plan: Preliminary urine culture grows gram-negative rods. Continue IV aztreonam for now and follow up final culture results. Qualifiers: Urinary tract infection type: site unspecified Hematuria presence: without hematuria Qualified Code(s): N39.0 - Urinary tract infection, site not specified (5) Cirrhosis of liver Current Visit: Yes Status: Chronic Qualifiers: Hepatic cirrhosis type: unspecified hepatic cirrhosis Ascites presence: with ascites Qualified Code(s): K74.60 - Unspecified cirrhosis of liver (6) Dementia Current Visit: Yes Status: Chronic Assessment and plan: supportive care and fall precautions; continue home meds; Physical therapy evaluation noted, recommend placement in retirement facility. career services manager on board. Qualifiers: Dementia type: Alzheimer's disease Alzheimer's disease onset: late-onset Dementia behavioral disturbance: without behavioral disturbance Qualified Code (s): G30.1 - Alzheimer's disease with late onset; F02.80 - Dementia in other diseases classified elsewhere without behavioral disturbance (7) Hypertension Current Visit: Yes Status: Chronic Qualifiers: Hypertension type: essential hypertension Qualified Code(s): I10 - Essential (primary) hypertension (8) Hypokalemia Current Visit: Yes Status: Acute Assessment and plan: Improving. Continue oral and IV potassium chloride supplements. Also noted to have hypomagnesemia, will give IV magnesium sulfate. - Subjective Interval history: Reports feeling well. No chest pain, shortness of breath or palpitations. Sitting up in chair today. - Constitutional Vitals: Temp Pulse Resp BP Pulse Ox 98.2 F 117 18 146/97 97 07/26/16 07:27 07/26/16 07:27 07/26/16 07:27 07/26/16 07:27 07/26/16 07:27 General appearance: Present: A&O X 1 - Respiratory Respiratory exam: Present: CTAB. Absent: accessory muscle use, rales, rhonchi, wheezes - Cardiovascular Cardiovascular exam: Present: RRR, +S1, +S2. Absent: diastolic murmur, gallop, rubs, systolic murmur - GI/Abdominal GI/Abdominal exam: Present: normal bowel sounds, soft, no peritoneal signs. Absent: distended, tenderness - Extremities Exam Extremities exam: Present: full ROM, warm, radial pulses palpable and symetrical. Absent: calf tenderness, cyanotic, pedal edema Internal Medicine: Result - Labs CBC & Chem 7: 07/25/16 06:42 07/26/16 04:30 Labs: BMP 07/25/16 07/26/16 04:44 04:30 Sodium 135 L 137 Potassium 2.7 L D 3.2 L Chloride 105 105 Carbon Dioxide 19 24 BUN 16 D 16 Creatinine 0.85 0.91 Glucose 152 H 154 H Calcium 7.8 L 8.4 L - ABG Interpretation ABG results: ABG ABG pH 7.41 pH Units (7.32-7.45) 07/23/16 20:25 ABG pCO2 32 mmHg (35-45) L 07/23/16 20:25 ABG pO2 65 mmHg (85-104) L 07/23/16 20:25 ABG O2 Saturation 93 % (95-98) L 07/23/16 20:25 PT/INR, D-dimer PT 15.6 Seconds (9.4-12.1) H 07/26/16 04:31 Consult Discharge Plan - Plan [facility]errals: [facility] [Primary Care Provider] -
[2016-07-26] MEDS: *HR* Heparin 5,000 UNIT/ML VIAL SQ SCH ×2 (19:53→19:59)
[2016-07-26] MEDS: Aztreonam 1,000 MG in D5% in Water (Mini-Bag+) 100 ML IVPB SCH ×3 (19:53→20:46)
[2016-07-26] MEDS: risperiDONE 1 MG TABLET PO SCH (20:47)
[2016-07-26] MEDS ORDERED: 0.9 % Sodium Chloride 500 ML IVC ONE (22:02)
[2016-07-26] MEDS ORDERED: Albuterol 2.5 MG/3 ML NEBULIZER IH PRN (22:04)
[2016-07-26] MEDS: Ipratropium/Albuterol Neb 3 ML IH SCH (23:00)
[2016-07-26 23:09] LABS: VBG HCO3 20.8 mEq/L (21-27); VBG PH 7.42 pH Units (7.32-7.42)
[2016-07-26] MEDS: Aztreonam 2,000 MG in D5% in Water (Mini-Bag+) 100 ML IVPB SCH (23:11)
[2016-07-26 23:43] LABS: Prolactin 50.71 ng/mL (3.46-19.40)
[2016-07-26 23:46] LABS: Adenovirus Not Detected (Not Detect); Bordetella Pertussis Not Detected (Not Detect); Chlamydophila pneumoniae Not Detected (Not Detect); Coronavirus 229E Not Detected (Not Detect); Coronavirus HKU1 Not Detected (Not Detect); Coronavirus NL63 Not Detected (Not Detect); Coronavirus OC43 Not Detected (Not Detect); Human Metapneumovirus Not Detected (Not Detect); Human Rhinovirus/Enterovirus Not Detected (Not Detect); Influenza A Subtype 2009 H1 Not Detected (Not Detect); Influenza A Untypeable Not Detected (Not Detect); Influenza B Not Detected (Not Detect); Mycoplasma pneumoniae Not Detected (Not Detect); Parainfluenza Virus 1 Not Detected (Not Detect); Parainfluenza Virus 2 Not Detected (Not Detect); Parainfluenza Virus 3 Not Detected (Not Detect); Parainfluenza Virus 4 Not Detected (Not Detect); Respiratory Syncytial Virus Not Detected (Not Detect)
[2016-07-27] MEDS: Ipratropium/Albuterol Neb 3 ML IH SCH ×4 (04:19→23:42)
[2016-07-27 04:44] LABS: INR 1.3; Prothrombin Time 14.3 Seconds (9.4-12.1)
[2016-07-27 04:53] LABS: Calcium 7.9 mg/dL (8.6-10.8); Potassium 3.3 mEq/L (3.5-4.5)
[2016-07-27] MEDS: *HR* Heparin 5,000 UNIT/ML VIAL SQ SCH ×2 (05:54→20:41)
[2016-07-27] MEDS: Aztreonam 2,000 MG in D5% in Water (Mini-Bag+) 100 ML IVPB SCH (05:55)
[2016-07-27] MEDS ORDERED: Magnesium Sulfate 2 GM in D5% in Water 100 ML IVPB ONE (08:55)
[2016-07-27] MEDS ORDERED: COLISTIN IVPB SCH (09:00)
[2016-07-27] MEDS ORDERED: Levofloxacin 500 MG/100 ML 500 MG/100 ML BAG IVPB SCH (09:00)
[2016-07-27] MEDS ORDERED: SODIUM CHLORIDE 0.9% IVPB SCH (09:00)
--- NOTE | 2016-07-27 09:09 | Internal Med Progress Note ---
Date of Encounter: 07/27/16 Time of Encounter: 09:07 - Assessment and plan (1) MANUEL (acute kidney injury) Current Visit: Yes Status: Acute Assessment and plan: Patient noted to have worsening serum creatinine along with mild lactic acidosis. He also has elevated sodium and chloride. Will start IV hydration with half-normal saline and continue to monitor urine output closely. Will Place Victoria catheter to monitor urine output given his dementia and urinary incontinence. Antibiotics to be dosed according to current GFR. (2) Acute respiratory failure Current Visit: Yes Status: Acute Assessment and plan: Likely related to aspiration and tachycardia. Continue IV antibiotics, supplemental oxygen and supportive care. Aspiration precautions. We will obtain CT chest to better evaluate lungs. I have discussed patient's current clinical condition with his guardian, Mr.Jeffrey Newman, and he verbalized understanding, confirmed that the patient has no living Will, however he is willing to consider DNR/DNI. We will consult palliative care team to assist with further discussions. High risk for complications. Qualifiers: Respiratory failure complication: hypoxia Qualified Code(s): J96.01 - Acute respiratory failure with hypoxia (3) Atrial fibrillation with RVR Current Visit: Yes Status: Ruled-out Assessment and plan: Patient continues to have tachycardia. Reviewed telemetry strips that show irregular and narrow complex tachycardia, unclear if this is atrial fibrillation or MAT, also has multiple PACs and PVCs. Will discuss with cardiology. We will consider increasing her by mouth Cardizem. Continue telemetry monitoring and supportive care. (4) Pneumonia Current Visit: Yes Status: Acute Assessment and plan: Reviewed chest x-rays from admission and from last night. This shows significant improvement in left lower lobe infiltrates but noted to have some bibasal infiltrates. Patient has been on IV aztreonam. We will start IV Levaquin and clindamycin at this time. Initial blood cultures remain negative. We will repeat blood cultures. Continue supplemental oxygen. Qualifiers: Pneumonia type: due to unspecified organism Laterality: left Lung location: lower lobe of lung Qualified Code(s): J18.1 - Lobar pneumonia, unspecified organism (5) UTI (urinary tract infection) Current Visit: Yes Status: Acute Assessment and plan: Urine culture grows multi drug-resistant Klebsiella pneumoniae, sensitive to Bactrim and gentamicin. Has been on IV aztreonam for 4 days. Antibiotic choice is difficult at this time given his renal dysfunction. Will discuss with infectious diseases. Qualifiers: Urinary tract infection type: site unspecified Hematuria presence: without hematuria Qualified Code(s): N39.0 - Urinary tract infection, site not specified (6) Cirrhosis of liver Current Visit: Yes Status: Chronic Qualifiers: Hepatic cirrhosis type: unspecified hepatic cirrhosis Ascites presence: with ascites Qualified Code(s): K74.60 - Unspecified cirrhosis of liver (7) Dementia Current Visit: Yes Status: Chronic Assessment and plan: supportive care and fall precautions; continue home meds; dysphagia and aspiration are likely related to underlying dementia. Physical therapy evaluation noted, recommend placement in group home facility. banking services officer on board. Qualifiers: Dementia type: Alzheimer's disease Alzheimer's disease onset: late-onset Dementia behavioral disturbance: without behavioral disturbance Qualified Code (s): G30.1 - Alzheimer's disease with late onset; F02.80 - Dementia in other diseases classified elsewhere without behavioral disturbance (8) Hypertension Current Visit: Yes Status: Chronic Qualifiers: Hypertension type: essential hypertension Qualified Code(s): I10 - Essential (primary) hypertension (9) Hypokalemia Current Visit: Yes Status: Acute Assessment and plan: Continue to replace with oral potassium chloride. - Subjective Interval history: Noted to be lethargic today. Sitting up in bed but not answering much. Reports not feeling too well today. Unable to swallow well, possibly aspirating. Noted to require supplemental oxygen today. - Constitutional Vitals: Temp Pulse Resp BP Pulse Ox 98.6 F 118 20 151/69 94 L 07/27/16 07:39 07/27/16 07:39 07/27/16 07:39 07/27/16 07:39 07/27/16 07:39 General appearance: Present: A&O X 1, mild distress - Respiratory Respiratory exam: Present: rales (Coarse breath sounds bilaterally). Absent: accessory muscle use, rhonchi, wheezes - Cardiovascular Cardiovascular exam: Present: irregular rhythm, +S1, +S2, tachycardia. Absent: diastolic murmur, gallop, rubs, systolic murmur - GI/Abdominal GI/Abdominal exam: Present: distended, normal bowel sounds, soft, no peritoneal signs. Absent: tenderness - Extremities Exam Extremities exam: Present: full ROM, warm, radial pulses palpable and symetrical. Absent: calf tenderness, cyanotic, pedal edema - Neurological Exam Neurological exam: Present: altered, CN II-XII intact, no focal deficits. Absent: pronater drift, facial droop, speech deficit - Skin Skin exam: Present: dry, intact Internal Medicine: Result - Labs CBC & Chem 7: 07/25/16 06:42 07/27/16 04:15 Labs: BMP 07/27/16 04:15 Sodium 142 Potassium 3.3 L Chloride 110 H Carbon Dioxide 18 L BUN 46 H D Creatinine 1.67 H D Glucose 156 H Calcium 7.9 L Cardiac Enzymes 07/26/16 Range/Units 22:58 Troponin I 0.01 (0-0.03) ng/mL - ABG Interpretation ABG results: ABG ABG pH 7.41 pH Units (7.32-7.45) 07/23/16 20:25 ABG pCO2 32 mmHg (35-45) L 07/23/16 20:25 ABG pO2 65 mmHg (85-104) L 07/23/16 20:25 ABG O2 Saturation 93 % (95-98) L 07/23/16 20:25 PT/INR, D-dimer PT 14.3 Seconds (9.4-12.1) H 07/27/16 04:15 - Impressions Impressions Chest X-Ray 07/26/16 22:00 IMPRESSION: Improvement with continued bibasilar airspace disease remaining. No pleural effusion D/ / Oracio Aponte MD / Oracio Aponte MD Interpreting Provider: Oracio Aponte MD Consult Discharge Plan - Plan [facility]errals: [facility] [Primary Care Provider] -
[2016-07-27] MEDS: Diltiazem CD (24hr) 180 MG CAPSULE PO SCH (09:28)
[2016-07-27] MEDS: predniSONE 20 MG TABLET PO SCH (09:29)
[2016-07-27] MEDS: Lactobacillus 1 EACH CAP.SPRINK PO SCH ×2 (09:29→20:41)
[2016-07-27] MEDS: Potassium Chloride Elixir 20 MEQ/15 ML UDC PO SCH ×2 (09:35→11:56)
--- NOTE | 2016-07-27 10:42 | Palliative - Consult Note ---
<Marc Vale - Last Filed: 07/27/16 10:39> Date of Encounter: 07/27/16 Time of Encounter: 10:30 - Assessment and Plan (1) Goals of care, counseling/discussion Current Visit: Yes Status: Acute Assessment and plan: Patient is pleasantly confused with underlying dementia. Patient has a guardian , Burton Newman. Attempts were made this morning to contact the guardian to discuss CODE STATUS however he was unable to be reached. We will attempt again this afternoon to discuss CODE STATUS with him. Patient will remain a full code at this time until we can have these discussions. In reviewing social work notes, [facility] and the plan of care is [facility], as the [facility] he was previously at feels like they cannot care for him any longer. (2) Acute respiratory failure Current Visit: Yes Status: Acute Assessment and plan: Likely secondary to pneumonia. Further management per primary team. Qualifiers: Respiratory failure complication: hypoxia Qualified Code(s): J96.01 - Acute respiratory failure with hypoxia (3) Dementia Current Visit: Yes Status: Chronic Assessment and plan: Moderate to severe. Continue current medical therapy per primary team. Qualifiers: Dementia type: Alzheimer's disease Alzheimer's disease onset: late-onset Dementia behavioral disturbance: without behavioral disturbance Qualified Code (s): G30.1 - Alzheimer's disease with late onset; F02.80 - Dementia in other diseases classified elsewhere without behavioral disturbance (4) Cirrhosis of liver Current Visit: Yes Status: Chronic Qualifiers: Hepatic cirrhosis type: unspecified hepatic cirrhosis Ascites presence: with ascites Qualified Code(s): K74.60 - Unspecified cirrhosis of liver (5) MANUEL (acute kidney injury) Current Visit: Yes Status: Acute Palliative-CN HPI - Data of Consult Patient: new to practice Consult date: 07/27/16 Requesting Physician: Laquita Chavarria MD Primary [facility] Provider: [facility] - Consult Narrative Reason for consult: Code Status discussion History of present illness: Mr. Burnett is a 86 year old male with history of dementia, [facility] with RVR. Patient is also currently being treated for pneumonia. Patient has moderate to severe underlying dementia and is cared for at a [facility] fdc. Patient is awake and alert to person only. He is minimally verbal and was only able to relay that he is not in pain. He did not appear to be in any acute distress. CC: Laquita Chavarria MD Past Med Surg Social Fam HX - Past Medical History Medical history: coronary artery disease, dementia, GERD, GI bleed, hypertension Psychiatric history: schizophrenia, other - Past Surgical History Surgical History: no surgical history - Social History Smoking Status: Never smoker Smokeless Tobacco Status: No Alcohol use: none Drug use: none Medications and Allergies Amlodipine [Norvasc] 7.5 mg PO DAILY 12/02/15 [History] Anagrelide HCl [Agrylin] 1 mg PO BID 12/02/15 [History] Cholecalciferol (Vitamin D3) [Vitamin D] 400 unit PO DAILY 12/02/15 [History] Donepezil [Aricept] 10 mg PO HS 12/02/15 [History] Ferrous Gluconate 325 mg PO DAILY 12/02/15 [History] Melatonin [Melatin] 3 mg PO HS 12/02/15 [History] Memantine [Namenda] 5 mg PO BID 12/02/15 [History] Metoprolol [Lopressor] 12.5 mg PO BID 12/02/15 [History] Pantoprazole Sodium [Protonix] 20 mg PO BID 12/02/15 [History] RisperiDONE [Risperidone Odt] 3 mg PO HS 12/02/15 [History] Tamsulosin [Flomax] 0.4 mg PO DAILY 12/02/15 [History] Acetaminophen [Non-Aspirin] 650 mg PO Q4H PRN 07/23/16 [History] Ipratropium/Albuterol Neb [Duoneb] 3 ml IH Q6HR 07/23/16 [History] Potassium Chloride [K-Tab ER] 20 meq PO DAILY 07/23/16 [History] Sennosides/Docusate Sodium [Senna-Docusate Sodium Tablet] 2 tab PO DAILY [History] Ketoconazole Shampoo [Nizoral Shampoo] 1 appl TP WESA 07/24/16 [History] Oseltamivir [Tamiflu] 75 mg PO DAILY 07/24/16 [History] Vit C/E/Zn/Coppr/Lutein/Zeaxan [Preservision Areds 2 Softgel] 1 tab PO DAILY [History] Allergies Penicillins [PCN] Allergy (Verified 12/02/15 09:34) See Comments Unknown reaction. ROS unobtainable: due to mental status Palliative Care-Exam - Constitutional Vitals: Temp Pulse Resp BP Pulse Ox 98.6 F 118 20 151/69 94 L 07/27/16 07:39 07/27/16 07:39 07/27/16 07:39 07/27/16 07:39 07/27/16 07:39 General appearance: Present: no acute distress - Head Head Exam: Present: atraumatic, normal inspection, normocephalic - ENT ENT exam: Present: mucous membranes moist - Respiratory Additional comments: Coarse breath sounds throughout. No wheezes noted. - Cardiovascular Cardiovascular exam: Present: irregular rhythm, tachycardia. Absent: systolic murmur - GI/Abdominal Exam GI/Abdominal exam: Present: distended, normal bowel sounds, soft. Absent: tenderness - Extremities Exam Extremities exam: Absent: pedal edema - Neurological Exam Neurological exam: Present: alert (Oriented to place only.), no focal deficits Internal Medicine - CN: Reslt - Labs CBC & Chem 7: 07/25/16 06:42 07/27/16 04:15 Labs: BMP 07/27/16 04:15 Sodium 142 Potassium 3.3 L Chloride 110 H Carbon Dioxide 18 L BUN 46 H D Creatinine 1.67 H D Glucose 156 H Calcium 7.9 L Cardiac Enzymes 07/26/16 Range/Units 22:58 Troponin I 0.01 (0-0.03) ng/mL - ABG Interpretation ABG results: ABG ABG pH 7.41 pH Units (7.32-7.45) 07/23/16 20:25 ABG pCO2 32 mmHg (35-45) L 07/23/16 20:25 ABG pO2 65 mmHg (85-104) L 07/23/16 20:25 ABG O2 Saturation 93 % (95-98) L 07/23/16 20:25 PT/INR, D-dimer PT 14.3 Seconds (9.4-12.1) H 07/27/16 04:15 - Impressions Impressions Chest X-Ray 07/26/16 22:00 IMPRESSION: Improvement with continued bibasilar airspace disease remaining. No pleural effusion D/ / Oracio Aponte MD / Oracio Aponte MD Interpreting Provider: Oracio Aponte MD Consult Discharge Plan - Plan [facility]errals: [facility]Primary Care Provider[facility] - ([facility] WILL SEE PATIENT THERE. NO PCP APPOINTMENT NEEDED) Palliative Quality Palliative Quality: Screen for Code Status: NA (Waiting to discuss with guardian ), Screen for Goals of Care: NA (Waiting to discuss with guardian), Screen for Pain: Yes, If Pain Regimen Started, Initiate Bowel Regimen: NA, Screen for Nausea/Vomitting: No Code Status: 07/23/16 20:39 Resuscitation Status: Active [RES] Routine Comment: Resuscitation Status: Full Code <Corona Walters L - Last Filed: 07/27/16 14:37> - Assessment and Plan (1) Goals of care, counseling/discussion Current Visit: Yes Status: Acute Palliative-CN HPI - Data of Consult Requesting Physician: Laquita Chavarria MD Primary Care Provider: PCP [facility] - Consult Narrative History of present illness: Mr. Burnett is a 86 year old male CC: Laquita Chavarria MD Palliative Care-Exam - Constitutional Vitals: Temp Pulse Resp BP Pulse Ox 97.9 F 100 24 160/100 91 L 07/27/16 11:34 07/27/16 14:15 07/27/16 12:04 07/27/16 11:34 07/27/16 14:15 Internal Medicine - CN: Reslt - Labs CBC & Chem 7: 07/25/16 06:42 07/27/16 04:15 Labs: BMP 07/27/16 04:15 Sodium 142 Potassium 3.3 L Chloride 110 H Carbon Dioxide 18 L BUN 46 H D Creatinine 1.67 H D Glucose 156 H Calcium 7.9 L Cardiac Enzymes 07/26/16 Range/Units 22:58 Troponin I 0.01 (0-0.03) ng/mL - ABG Interpretation ABG results: ABG ABG pH 7.41 pH Units (7.32-7.45) 07/23/16 20:25 ABG pCO2 32 mmHg (35-45) L 07/23/16 20:25 ABG pO2 65 mmHg (85-104) L 07/23/16 20:25 ABG O2 Saturation 93 % (95-98) L 07/23/16 20:25 PT/INR, D-dimer PT 14.3 Seconds (9.4-12.1) H 07/27/16 04:15 - Impressions Impressions Chest X-Ray 07/26/16 22:00 IMPRESSION: Improvement with continued bibasilar airspace disease remaining. No pleural effusion D/ / Oracio Aponte MD / Oracio Aponte MD Interpreting Provider: Oracio Aponte MD Chest CT 07/27/16 10:00 IMPRESSION: 1. Multifocal pneumonia, worst in the bilateral bases. 2. Gas is identified in the liver of unclear etiology. Finding may represent portal venous gas versus pneumobilia. Recommend dedicated CT abdomen and pelvis (with contrast if possible) as clinically warranted. D/ / 07/27/2016 11:04:16 Radha Barrios MD / Macrina Gross Interpreting Provider: Radha Barrios MD - Attending Attestation I examined this patient and my medical decision-making was reviewed with the [employer]ENE[employer] DEPARTMENT MANAGER/PA/Advanced Practice Nurse/Resident Physician. I agree with the documented findings, disposition and treatment plan as described except to the extent set forth below. Called patient guardian, Burton Newman,, who was reachable at the [place] prosecutor's office phone number [phone] and left a message for him to call me back, at this time I am still awaiting his call. Message was left on his other phone [phone]. [facility]. Quite a social work notes it may be possible to get him back to the acute medicine side. At this time palliative care is doing nothing but trying to reach since guardian to discuss CODE STATUS we will follow from a distance over the weekend and try again come Saturday. Palliative Quality Code Status: 07/23/16 20:39 Resuscitation Status: Active [RES] Routine Comment: Resuscitation Status: Full Code
--- NOTE | 2016-07-27 11:05 | Cardiology Progress Note ---
Date of Encounter: 07/27/16 Time of Encounter: 10:55 Assessment and Plan (1) Multifocal atrial tachycardia Current Visit: Yes Status: Acute MAT, HR fluctuating between 80s-130s upon exam. Etiology likely secondary to multifocal pneumonia, possible aspiration. Echo from 07/24/16 showed sinus rhythm with frequent PACs and occasional PVCs, normal LV systolic function, LVEF 60%, mild LV diastolic dysfunction, dilated RV with normal function. TSH normal- 3.042 CT chest was significant for multifocal pneumonia. Patient also has UTI with culture significant for Klebsiella pneumonia MDRO, blood cultures showed no growth. Plan: Telemetry showed Min HR 53, Max 190s, average HR 113, 10 beat run of Vtach. Treatment for MAT will be to treat the underlying cause, which in this case would be pneumonia. Please check and replace electrolytes as needed. Continue with IV antibiotics, supplemental oxygen, and supportive care. Resumed patient's home dose of Metoprolol 12.5mg BID. Continue Cardizem PO 180 daily and monitor. (2) Hypertension Current Visit: Yes Status: Chronic blood pressures well controlled at this time. management per primary team. Qualifiers: Hypertension type: essential hypertension Qualified Code(s): I10 - Essential (primary) hypertension Discussion w patient/family: The assessment and plan as outlined above was discussed with the patient and/or family members who expressed understanding and agreement. All questions were answered. Thank you for involving us in the care of your patient. Please call with any questions. Subjective Principal diagnosis: multifocal atrial tachycardia Interval history: 86 year old male evaluated at bedside. Patient appears more ill today upon exam. He was laying in bed sleeping, minimally responsive. Able to answer yes/ no questions after asked multiple times. Objective Vital Signs, Last 4 Hours Temp Pulse Resp BP Pulse Ox 07/27/16 07:39 98.6 F 118 20 151/69 94 L General: Other (patient appears very ill, in moderate distress. ) HEENT: Atraumatic, Normocephaly Neck: No JVD Cardiac: Other (irregular rhythm. ) Lungs: Other (rhonchi, wheezing. ) Neuro: Other (alert and minimally responsive. ) Abdomen: Soft, Non-Tender Extremities: No Cyanosis, No Edema Results 07/25/16 06:42 07/27/16 04:15 Lab Results 07/26/16 07/26/16 07/27/16 22:58 22:58 04:15 INR 1.3 Sodium Potassium Chloride Carbon Dioxide BUN Creatinine Glucose Calcium Troponin I 0.01 B-Natriuretic Peptide 202 H 07/27/16 04:15 INR Sodium 142 Potassium 3.3 L Chloride 110 H Carbon Dioxide 18 L BUN 46 H D Creatinine 1.67 H D Glucose 156 H Calcium 7.9 L Troponin I B-Natriuretic Peptide Consult Discharge Plan - Plan [facility]errals: [facility] [Primary Care Provider] - (PT IS FROM [facility] THEY WILL SEE PATIENT THERE. NO PCP APPOINTMENT NEEDED)
[2016-07-27] MEDS ORDERED: Cefepime HCl 1,000 MG in D5% in Water (Mini-Bag+) 100 ML IVPB SCH (13:00)
--- NOTE | 2016-07-27 13:03 | Infectious Disease Consult ---
Date of Encounter: 07/27/16 Time of Encounter: 11:30 Assessment and Plan (1) Sepsis Status: Acute Assessment and plan: The patient had two SIRS criteria plus MANUEL on admission. Likely secondary to UTI and PNA. The patient continues to have tachycardia. WBC has not been checked since . Check CBC now. Blood culture drawn 07/23/16 is NGTD 05/13 set. Qualifiers: Sepsis type: sepsis due to unspecified organism Qualified Code(s): A41.9 - Sepsis, unspecified organism (2) UTI (urinary tract infection) Status: Acute Assessment and plan: Causative organism MDR K. pneumoniae, sensitive only to gentamicin and bactrim. Likely secondary to incomplete emptying of the bladder and incontinence/wearing depends. Treatment of the patient's UTI poses some challenges due to the limited choice of antibiotics and the patient's comorbid conditions. Gentamicin and bactrim are both quite nephrotoxic and given the patient's MANUEL, we need to be judicious in using either of these antibiotics. Another potential antibiotic we could use is Colistin, but again, the nephrotoxicity associated with this drug makes it a poor choice. Gentamicin bladder irrigations are not useful in this case due to the patient still making urine. Start Bactrim IV. Dose discussed with Manuela Sparks. Dose for a creatinine clearance of ~25. Victoria catheter placed this morning to monitor I's and O's closely and completely empty the bladder. Monitor renal function closely and dose-adjust antibiotics based on changes in the patient's creatinine clearance. Duration of treatment depends on the clinical picture. Qualifiers: Urinary tract infection type: site unspecified Hematuria presence: without hematuria Qualified Code(s): N39.0 - Urinary tract infection, site not specified (3) Pneumonia Status: Acute Assessment and plan: HCAP Causative organism unclear. Concern for possible aspiration despite the patient passing swallow evaluation. CXR on admission showed LLL airspace disease. CT of the chest today shows bilateral mutifocal PNA. Get sputum culture if the patient is able to give an adequate specimen. Send urine for S. pneumo and Legionella UAT. Continue Levaquin for now, but discontinue if S. pneumo and Legionella testing is negative. Discontinue Clindamycin. Given the patient's advanced age and comorbid conditions, he is at high risk for C. diff with any antibiotic use, more so with the use of clindamycin. Start Cefepime 1 gram IV Q24H (dosed for CrCl ~25) . Unable to use Zosyn due to documented PCN allergy and patient unable to confirm or deny this. Start Bactrim as above for MRSA coverage in addition to MDR K. pneumoniae coverage. Start Flagyl 500mg IV TID for anaerobic (aspiration) coverage. Duration of treatment depends on the clinical picture. Monitor renal function closely and dose-adjust antibiotics. Qualifiers: Pneumonia type: due to unspecified organism Laterality: left Lung location: lower lobe of lung Qualified Code(s): J18.1 - Lobar pneumonia, unspecified organism (4) MANUEL (acute kidney injury) Status: Acute Assessment and plan: Creatinine up to 1.67 today after being normal yesterday. Only one wet attends documented yesterday. Not sure if this is accurate or not. Victoria catheter placed this morning to obtain accurate Is and Os. Likely multifactorial: sepsis + incomplete emptying of the bladder + ?CKD + nephrotoxic medications Repeat labs in the AM. Consider nephrology consult if renal function continues to worsen. Avoid nephrotoxic agents. Unfortunately, we have to use Bactrim (or other nephrotoxic agent) to adequately treat the patient's infections. We will aggressively monitor the patient's renal function and dose-adjust the antibiotics as needed based on his creatinine clearance. (5) Acute respiratory failure Status: Acute Assessment and plan: Likely secondary to PNA. On O2 via nasal cannula at this time. Management per the primary team. Qualifiers: Respiratory failure complication: hypoxia Qualified Code(s): J96.01 - Acute respiratory failure with hypoxia (6) Bronchitis Status: Acute (7) Cirrhosis of liver Status: Chronic Assessment and plan: Noted on CT of the chest. CT of the abdomen and pelvis pending. Consider GI consult for further evaluation. Qualifiers: Hepatic cirrhosis type: unspecified hepatic cirrhosis Ascites presence: with ascites Qualified Code(s): K74.60 - Unspecified cirrhosis of liver (8) Multifocal atrial tachycardia Status: Acute Assessment and plan: Likely secondary to sepsis. Continues to have episodes of sustained tachycardia. Cardiology consulted and following. (9) Hypokalemia Status: Resolved (10) Dementia Status: Chronic Qualifiers: Dementia type: Alzheimer's disease Alzheimer's disease onset: late-onset Dementia behavioral disturbance: without behavioral disturbance Qualified Code (s): G30.1 - Alzheimer's disease with late onset; F02.80 - Dementia in other diseases classified elsewhere without behavioral disturbance (11) Decubitus ulcer of right ischium, stage 3 Status: Chronic Assessment and plan: Clinically does not appear infected. Continue aggressive wound care. (12) Pressure ulcer of sacral region, stage 3 Status: Acute Assessment and plan: Clinically does not appear infected. Continue aggressive wound care. (13) Hypertension Status: Chronic Qualifiers: Hypertension type: essential hypertension Qualified Code(s): I10 - Essential (primary) hypertension Infectious Disease HPI - Data of Consult Patient: new to practice Consult date: 07/27/16 Requesting Physician: Laquita Chavarria MD [facility] Provider[facility] - Consult Narrative Reason for consult: MDR K. pneumoniae UTI History of present illness: Mr. Burnett is a 86 year old male with a past medical history of dementia, hypertension, secondary Parkinson is on, macular degeneration, CAD, GERD, and GI bleed. The patient was admitted to the hospital July 23 for cardiac arrhythmia. We are consulted July 27, 2016 for further evaluation and treatment recommendations regarding [id number] organism in the urine. The patient is a 86-year-old male with past medical history as stated above. The patient is a poor historian and cannot provide any information regarding the events leading up to his hospitalization. All the information is obtained from the medical record. Apparently, the patient was transferred from the local [facility] with complaints of a cardiac arrhythmia that involved both bradycardia and tachycardia. The patient was transferred here for cardiology evaluation. Upon arrival, patient had a chest x-ray completed that showed a left lower lobe alveolar airspace disease. The patient also had a CT of the chest at the [facility] that showed findings consistent with bronchitis as well as esophageal thickening, cirrhosis with ascites, splenomegaly, and portal hypertension. Upon arrival here, the patient had a white blood cell count of 17.2 thousand. He also had an acute kidney injury. Urinalysis obtained here was positive for pyuria. Culture grew out [id number] Klebsiella pneumoniae , sensitive only to gentamicin and Bactrim. Since admission, the patient's leukocytosis has improved, but clinically the patient has somewhat worsened according to other provider notes. Repeat chest x-ray yesterday showed improved infiltrates, but a CT of the chest today revealed bilateral multifocal pneumonia and possible gas in the liver. A CT abdomen and pelvis has been ordered and is currently pending. On arrival, the patient was started on IV Azactam and Flagyl. His antibiotics have since been discontinued and the patient was switched to clindamycin and Levaquin. We've asked to evaluate and make further recommendations. CC: Laquita Chavarria MD Past Med Surg Social Fam HX - Past Medical History Source: old records reviewed, nursing notes reviewed Medical history: coronary artery disease, dementia, GERD, GI bleed, hypertension Psychiatric history: schizophrenia, other - Past Surgical History Surgical History: no surgical history - Social History Smoking Status: Never smoker Smokeless Tobacco Status: No Alcohol use: none Drug use: none Current living situation: [facility] Infectious Disease-CN:Meds Amlodipine [Norvasc] 7.5 mg PO DAILY 12/02/15 [History] Anagrelide HCl [Agrylin] 1 mg PO BID 12/02/15 [History] Cholecalciferol (Vitamin D3) [Vitamin D] 400 unit PO DAILY 12/02/15 [History] Donepezil [Aricept] 10 mg PO HS 12/02/15 [History] Ferrous Gluconate 325 mg PO DAILY 12/02/15 [History] Melatonin [Melatin] 3 mg PO HS 12/02/15 [History] Memantine [Namenda] 5 mg PO BID 12/02/15 [History] Metoprolol [Lopressor] 12.5 mg PO BID 12/02/15 [History] Pantoprazole Sodium [Protonix] 20 mg PO BID 12/02/15 [History] RisperiDONE [Risperidone Odt] 3 mg PO HS 12/02/15 [History] Tamsulosin [Flomax] 0.4 mg PO DAILY 12/02/15 [History] Acetaminophen [Non-Aspirin] 650 mg PO Q4H PRN 07/23/16 [History] Ipratropium/Albuterol Neb [Duoneb] 3 ml IH Q6HR 07/23/16 [History] Potassium Chloride [K-Tab ER] 20 meq PO DAILY 07/23/16 [History] Sennosides/Docusate Sodium [Senna-Docusate Sodium Tablet] 2 tab PO DAILY [History] Ketoconazole Shampoo [Nizoral Shampoo] 1 appl TP [facility] 07/24/16 [History] Oseltamivir [Tamiflu] 75 mg PO DAILY 07/24/16 [History] Vit C/E/Zn/Coppr/Lutein/Zeaxan [Preservision Areds 2 Softgel] 1 tab PO DAILY [History] Allergies Penicillins [PCN] Allergy (Verified 12/02/15 09:34) See Comments Unknown reaction. ROS unobtainable: due to mental status Exam - Constitutional Vitals: Temp Pulse Resp BP Pulse Ox 97.9 F 136 26 160/100 91 L 07/27/16 11:34 07/27/16 11:34 07/27/16 11:34 07/27/16 11:34 07/27/16 11:34 General appearance: cooperative, mild distress, thin - Head Head exam: Present: atraumatic, normal inspection, normocephalic - Eye Eye exam: Present: EOMI, normal appearance, PERRL Pupils: Present: normal accommodation - ENT ENT exam: Present: mucous membranes dry - Neck Neck exam: Present: normal inspection. Absent: lymphadenopathy - Respiratory Respiratory exam: Present: rhonchi (Throughout), tachypnea. Absent: rales, respiratory distress, wheezes - Cardiovascular Cardiovascular exam: Present: irregular rhythm, tachycardia - GI/Abdominal GI/Abdominal exam: Present: distended, normal bowel sounds, soft. Absent: tenderness - Extremities Exam Extremities exam: Present: normal inspection. Absent: joint swelling, pedal edema, tenderness - Neurological Exam Neurological exam: Present: alert, no focal deficits, strengths equal and symetr throughout. Absent: oriented X3 (Oriented to person only) Additional comments: Difficult to understand. - Psychiatric Psychiatric exam: Present: normal affect, normal mood - Skin Skin exam: Present: dry, intact, normal color, warm Infectious Disease CN: Results - Labs CBC & Chem 7: 07/25/16 06:42 07/27/16 04:15 Cultures: Cultures 07/24/16 00:50 Urine Culture - Preliminary Urine,Clean Catch Klebsiella pneumoniae MDRO 07/23/16 21:20 Blood Culture - Preliminary Peripheral Venipuncture No growth. Serology: Serology 07/26/16 07/24/16 Range/Units 22:30 00:50 Urine Color Yellow (Yellow) Urine Clarity Turbid A (Clear) Urine pH 5.5 (5.0-8.0) pH Units Ur Specific [place] 1.022 (1.010-1.025) Urine Protein 100 H (Neg-Trace) mg/dL Urine Glucose (UA) Normal (Normal) mg/dL Urine Ketones 15 H (Negative) mg/dL Urine Blood Large H (Negative) Urine Nitrite Negative (Negative) Urine Bilirubin Negative (Negative) Urine Urobilinogen Normal (Normal) mg/dL Ur Leukocyte Esterase Large H (Negative) Urine Microscopic RBC 30-50 H (0-3) per hpf Urine Microscopic WBC TNTC H (0-3) per hpf Ur Squamous Epith Cells Many H (None-Few) per lpf Urine Bacteria Many H (None-Few) per hpf Hyaline Casts None Seen (None-Few) per lpf Urine Yeast Test Not Performed Ur Culture Indicated? YES A (NO) Chlamy pneumoniae PCR Not Detected (Not Detect) Adenovirus (PCR) Not Detected (Not Detect) B. pertussis DNA (PCR) Not Detected (Not Detect) Coronavirus OC43 (PCR) Not Detected (Not Detect) Coronavirus HKU1 (PCR) Not Detected (Not Detect) Coronavirus 229E (PCR) Not Detected (Not Detect) Coronavirus NL63 (PCR) Not Detected (Not Detect) Human Metapneumovirus Not Detected (Not Detect) Influenza A (H1) PCR Not Detected (Not Detect) Influ A (H1N1/09) PCR Not Detected (Not Detect) Influenza A (H3) PCR Not Detected (Not Detect) Influenza A Untype (PCR) Not Detected (Not Detect) Influenza Type B (PCR) Not Detected (Not Detect) M.pneumoniae DNA (PCR) Not Detected (Not Detect) Parainfluenza 1 (PCR) Not Detected (Not Detect) Parainfluenza 2 (PCR) Not Detected (Not Detect) Parainfluenza 3 (PCR) Not Detected (Not Detect) Parainfluenza 4 (PCR) Not Detected (Not Detect) RSV (PCR) Not Detected (Not Detect) Entero/Rhino (PCR) Not Detected (Not Detect) Consult Discharge Plan - Plan [facility]errals: [facility] [Primary Care Provider] - (PT IS FROM [facility] [place] THEY WILL SEE PATIENT THERE. NO PCP APPOINTMENT NEEDED)
[2016-07-27] MEDS: TRIMETH IVPB SCH (14:20)
[2016-07-27] MEDS: SULFAMETHOXAZOLE IVPB SCH (14:20)
[2016-07-27] MEDS: WATER IVPB SCH (14:20)
[2016-07-27] MEDS: D5 IVPB SCH (14:20)
[2016-07-27 14:39] LABS: Calcium 8.3 mg/dL (8.6-10.8); Potassium 3.9 mEq/L (3.5-4.5)
[2016-07-27 14:47] LABS: Hematocrit 32.3 % (37.5-50.1); Hemoglobin 10.2 g/dL (12.9-16.9); Mean Corpuscular HGB Conc 31.6 g/dL (31.6-35.5); Mean Corpuscular Hemoglobin 24.8 pg (28.0-33.3); Mean Corpuscular Volume 78.6 fL (83.0-100.0); Mean Platelet Volume 12.5 fL (9.4-12.4); Platelet Count 602 K/mcL (140-400); Red Blood Count 4.11 M/mcL (4.19-5.50); Red Cell Distribution Width 18.5 % (11.5-14.5)
[2016-07-27 15:02] LABS: Large Platelets Present (Not Present); Neutrophils # 28.8 K/mcL (1.6-8.9); Platelet Estimate Increased (Normal)
[2016-07-27 15:03] LABS: Anisocytosis 2+ (Not Present); Microcytosis Present (Not Present); Poikilocytosis 2+ (Not Present)
[2016-07-27 15:05] LABS: Albumin 2.6 g/dL (3.5-5.0); Albumin/Globulin Ratio 0.7 (1.1-2.2); Bilirubin,Direct 0.1 mg/dL (0.0-0.5); Bilirubin,Indirect 0.2 mg/dL (0.0-1.2); Bilirubin,Total 0.3 mg/dL (0.2-1.2); Globulin 3.7 g/dL (2.4-3.5); Total Protein 6.3 g/dL (6.0-8.3)
--- NOTE | 2016-07-27 15:07 | Event Note ---
Date of Encounter: 07/27/16 Time of Encounter: 15:04 Received critical imaging results- CT abdomen/pelvis is concerning for small bowel ischemia with portal venous gas, also noted is urinary bladder wall thickening, could be cystitis or outlet obstruction. CT chest also shows B/L multifocal Pneumonia and possible aspiration. Patient noted to have worsening leukocytosis, respiratory failure, acute renal failure along with some lactic acidosis; high risk for complications. Consulted Surgery. Will keep patient NPO and start D51/2NS, repeat stat lactic acid; continue to monitor closely; Continue IV Levaquin, Cefepime, Flagyl and Bactrim per ID; repeat blood cultures.
--- NOTE | 2016-07-27 15:58 | General Surgery Consult Note ---
Date of Encounter: 07/27/16 Time of Encounter: 15:45 Assessment and Plan (1) Ischemic disease of gut Current Visit: Yes Status: Resolved The patient has developed what appears to be necrotic small bowel. He will not survive without aggressive surgical intervention. The appropriateness of aggressive surgical intervention in this patient with dementia as well as cirrhosis and portal hypertension at age 86 is washable. Palliative care is a perfectly reasonable approach. I will discuss further with his attendings. Thank you History of Present Illness Consult date: 07/27/16 Reason for consult: abdominal pain History of present illness: The patient was recently admitted with dementia. He has known cirrhosis and portal hypertension as well as dementia. Today he was noted that his white blood cell count had elevated from 14,000-28,000. He is unresponsive during a CAT scan of the abdomen demonstrates pneumatosis of the distal small bowel wall as well as gas in the portal venous system. The patient appears to have necrosis of the distal small bowel. He will not survive without surgical resection in aggressive measures. It is noted that palliative care is involved in the patient's care for coverage status. There were unable to reach the guardian earlier today. With this 86- year-old gentleman with cirrhosis and portal hypertension as well as dementia a perfectly reasonable course of action is to not operate and have [facility] to care assume his overall treatment plan. Past Med Surg Social Fam HX - Past Medical History Medical history: coronary artery disease, dementia, GERD, GI bleed, hypertension Psychiatric history: schizophrenia, other - Past Surgical History Surgical History: no surgical history - Social History Smoking Status: Never smoker Smokeless Tobacco Status: No Alcohol use: none Drug use: none Medications and Allergies Amlodipine [Norvasc] 7.5 mg PO DAILY 12/02/15 [History] Anagrelide HCl [Agrylin] 1 mg PO BID 12/02/15 [History] Cholecalciferol (Vitamin D3) [Vitamin D] 400 unit PO DAILY 12/02/15 [History] Donepezil [Aricept] 10 mg PO HS 12/02/15 [History] Ferrous Gluconate 325 mg PO DAILY 12/02/15 [History] Melatonin [Melatin] 3 mg PO HS 12/02/15 [History] Memantine [Namenda] 5 mg PO BID 12/02/15 [History] Metoprolol [Lopressor] 12.5 mg PO BID 12/02/15 [History] Pantoprazole Sodium [Protonix] 20 mg PO BID 12/02/15 [History] RisperiDONE [Risperidone Odt] 3 mg PO HS 12/02/15 [History] Tamsulosin [Flomax] 0.4 mg PO DAILY 12/02/15 [History] Acetaminophen [Non-Aspirin] 650 mg PO Q4H PRN 07/23/16 [History] Ipratropium/Albuterol Neb [Duoneb] 3 ml IH Q6HR 07/23/16 [History] Potassium Chloride [K-Tab ER] 20 meq PO DAILY 07/23/16 [History] Sennosides/Docusate Sodium [Senna-Docusate Sodium Tablet] 2 tab PO DAILY [History] Ketoconazole Shampoo [Nizoral Shampoo] 1 appl TP WESA 07/24/16 [History] Oseltamivir [Tamiflu] 75 mg PO DAILY 07/24/16 [History] Vit C/E/Zn/Coppr/Lutein/Zeaxan [Preservision Areds 2 Softgel] 1 tab PO DAILY [History] Allergies Penicillins [PCN] Allergy (Verified 12/02/15 09:34) See Comments Unknown reaction. Review of Systems ROS unobtainable: due to mental status All systems PM: A 10-system review of systems was performed and is negative for pertinent findings except as documented above in the HPI. General Surgery Exam Initial Vital Signs Temp Pulse Resp BP Pulse Ox 98.0 F 98 20 135/76 94 L 07/23/16 18:45 07/23/16 18:45 07/23/16 18:45 07/23/16 18:45 07/23/16 18:45 - General physical appearance other (Nonresponsive) - Respiratory crackles: bilateral, wheezing: bilateral - Cardiovascular Cardiovascular exam: Present: tachycardia, no murmurs/rubs/gallops - Abdomen Abdomen general surgery: Present: distended - Neurologic Present: other (Responsive) - Psychiatric Psychiatric general surgery: Present: other (Unresponsive not oriented) Exam Initial Vital Signs Temp Pulse Resp BP Pulse Ox 98.0 F 98 20 135/76 94 L 07/23/16 18:45 07/23/16 18:45 07/23/16 18:45 07/23/16 18:45 07/23/16 18:45 Results - Labs 07/27/16 14:38 07/27/16 14:15 Abnormal lab results WBC 28.8 K/mcL (4.3-11.1) H D 07/27/16 14:38 RBC 4.11 M/mcL (4.19-5.50) L 07/27/16 14:38 Hgb 10.2 g/dL (12.9-16.9) L 07/27/16 14:38 Hct 32.3 % (37.5-50.1) L 07/27/16 14:38 MCV 78.6 fL (83.0-100.0) L 07/27/16 14:38 MCH 24.8 pg (28.0-33.3) L 07/27/16 14:38 RDW 18.5 % (11.5-14.5) H 07/27/16 14:38 Plt Count 602 K/mcL (140-400) H D 07/27/16 14:38 MPV 12.5 fL (9.4-12.4) H 07/27/16 14:38 Neutrophils # 28.8 K/mcL (1.6-8.9) H 07/27/16 14:38 Reactive Lymphocytes Present (Not Present) A 07/25/16 06:42 Platelet Estimate Increased (Normal) H 07/27/16 14:38 Large Platelets Present (Not Present) A 07/27/16 14:38 Immature Plt Fraction 18.1 % (1.1-6.1) H 07/25/16 06:42 Poikilocytosis 2+ (Not Present) A 07/27/16 14:38 Anisocytosis 2+ (Not Present) A 07/27/16 14:38 Microcytosis Present (Not Present) A 07/27/16 14:38 PT 14.3 Seconds (9.4-12.1) H 07/27/16 04:15 APTT 25.2 Seconds (26.0-36.0) L 07/26/16 04:31 ABG pCO2 32 mmHg (35-45) L 07/23/16 20:25 ABG pO2 65 mmHg (85-104) L 07/23/16 20:25 ABG HCO3 20.3 mEQ/L (21-27) L 07/23/16 20:25 ABG O2 Saturation 93 % (95-98) L 07/23/16 20:25 ABG Base Excess -3.6 mEq/L (-2.0 to 3.0) L 07/23/16 20:25 VBG pCO2 32 mmHg (41-51) L 07/26/16 22:58 VBG pO2 54 mmHg (25-40) H 07/26/16 22:58 VBG HCO3 20.8 mEq/L (21-27) L 07/26/16 22:58 Chloride 113 mEq/L (98-109) H 07/27/16 14:15 Carbon Dioxide 17 mEq/L (19-29) L 07/27/16 14:15 BUN 49 mg/dL (8-26) H 07/27/16 14:15 Creatinine 1.60 mg/dL (0.72-1.25) H 07/27/16 14:15 Est GFR ( Amer) 50 (> 60) L 07/27/16 14:15 Est GFR (Non-Af Amer) 41 (> 60) L 07/27/16 14:15 BUN/Creatinine Ratio 31 (6-26) H 07/27/16 14:15 Glucose 257 mg/dL (70-99) H 07/27/16 14:15 POC Glucose 233 (58-89) H 07/26/16 21:18 Calculated Osmolality 316 (280-300) H 07/27/16 14:15 Lactic Acid 3.0 mmol/L (0.5-2.2) H 07/26/16 22:58 Calcium 8.3 mg/dL (8.6-10.8) L 07/27/16 14:15 B-Natriuretic Peptide 202 pg/mL (0-100) H 07/26/16 22:58 Albumin 2.6 g/dL (3.5-5.0) L 07/27/16 04:15 Globulin 3.7 g/dL (2.4-3.5) H 07/27/16 04:15 Albumin/Globulin Ratio 0.7 (1.1-2.2) L 07/27/16 04:15 Prolactin 50.71 ng/mL (3.46-19.40) H 07/26/16 22:58 Urine Clarity Turbid (Clear) A 07/24/16 00:50 Urine Protein 100 mg/dL (Neg-Trace) H 07/24/16 00:50 Urine Ketones 15 mg/dL (Negative) H 07/24/16 00:50 Urine Blood Large (Negative) H 07/24/16 00:50 Ur Leukocyte Esterase Large (Negative) H 07/24/16 00:50 Urine Microscopic RBC 30-50 per hpf (0-3) H 07/24/16 00:50 Urine Microscopic WBC TNTC per hpf (0-3) H 07/24/16 00:50 Ur Squamous Epith Cells Many per lpf (None-Few) H 07/24/16 00:50 Urine Bacteria Many per hpf (None-Few) H 07/24/16 00:50 Ur Culture Indicated? YES (NO) A 07/24/16 00:50 Diabetes panel 07/27/16 07/27/16 Range/Units 04:15 14:15 Sodium 142 142 (136-145) mEq/L Potassium 3.3 L 3.9 (3.5-4.5) mEq/L Chloride 110 H 113 H (98-109) mEq/L Carbon Dioxide 18 L 17 L (19-29) mEq/L BUN 46 H D 49 H (8-26) mg/dL Creatinine 1.67 H D 1.60 H (0.72-1.25) mg/dL Glucose 156 H 257 H (70-99) mg/dL Calcium 7.9 L 8.3 L (8.6-10.8) mg/dL AST 29 (5-34) Units/L ALT 13 (0-55) Units/L Alkaline Phosphatase 99 (38-126) Units/L Albumin 2.6 L (3.5-5.0) g/dL Calcium panel 07/27/16 07/27/16 Range/Units 04:15 14:15 Calcium 7.9 L 8.3 L (8.6-10.8) mg/dL Albumin 2.6 L (3.5-5.0) g/dL Pituitary panel 07/26/16 07/27/16 07/27/16 Range/Units 22:58 04:15 14:15 Sodium 142 142 (136-145) mEq/L Potassium 3.3 L 3.9 (3.5-4.5) mEq/L Chloride 110 H 113 H (98-109) mEq/L Carbon Dioxide 18 L 17 L (19-29) mEq/L BUN 46 H D 49 H (8-26) mg/dL Creatinine 1.67 H D 1.60 H (0.72-1.25) mg/dL Glucose 156 H 257 H (70-99) mg/dL Calcium 7.9 L 8.3 L (8.6-10.8) mg/dL Prolactin 50.71 H (3.46-19.40) ng/mL Adrenal panel 07/27/16 07/27/16 Range/Units 04:15 14:15 Sodium 142 142 (136-145) mEq/L Potassium 3.3 L 3.9 (3.5-4.5) mEq/L Chloride 110 H 113 H (98-109) mEq/L Carbon Dioxide 18 L 17 L (19-29) mEq/L BUN 46 H D 49 H (8-26) mg/dL Creatinine 1.67 H D 1.60 H (0.72-1.25) mg/dL Glucose 156 H 257 H (70-99) mg/dL Calcium 7.9 L 8.3 L (8.6-10.8) mg/dL Total Bilirubin 0.3 (0.2-1.2) mg/dL AST 29 (5-34) Units/L ALT 13 (0-55) Units/L Alkaline Phosphatase 99 (38-126) Units/L Albumin 2.6 L (3.5-5.0) g/dL All other labs normal. Consult Discharge Plan - Plan [facility]errals: [facility] Care Provider[facility] - (PT IS FROM [facility] THEY WILL SEE PATIENT THERE. NO PCP APPOINTMENT NEEDED)
[2016-07-27] MEDS ORDERED: Clindamycin 600 MG/50 ML 600 MG/50 ML IV.SOLN IVPB SCH (16:00)
[2016-07-27] MEDS: D5% in 0.45% NACL 1,000 ML IVC SCH (16:20)
[2016-07-27] MEDS: MetroNIDAZOLE 500 MG/100 ML 500 MG/100 ML BAG IVPB SCH (16:21)
--- NOTE | 2016-07-27 17:20 | Event Note ---
Date of Encounter: 07/27/16 Time of Encounter: 17:18 As of this time I was unable to reach the patient's guardian. Have discussed the case with Rita Neri who is his hospitalist and recommended if the patient has a surgical condition that cannot be treated by surgery as already noted by her after discussion with Dr. Arreaga she can place a DNR based on her opinion and that of dr Arreaga order basis of other intervention being contraindicated due to very poor expected outcome.
--- NOTE | 2016-07-27 17:27 | Event Note ---
Date of Encounter: 07/27/16 Time of Encounter: 17:19 After multiple attempts to reach patient's legal guardian were unsuccessful, case d/w Surgery- and Palliative care , and patient is noted to have a grave prognosis at this time. Given his underlying dementia, poor functional status, cirrhosis with coagulopathy along with possible aspiration Pneumonia, lactic acidosis, worsening leukocytosis and renal failure, patient may not benefit from aggressive medical interventions. Surgery at this time would be futile as there is poor chances of meaningful recovery. Based on two physicians' determination of futile medical care, patient's Code status will be changed to DNR-CCA/DNI. Continue conservative medical and supportive care at this time; Legal guardian was agreeable to this when I spoke to him this morning; we will continue to attempt to reach him and update patient's condition;
[2016-07-27] MEDS ORDERED: Aztreonam 2,000 MG in D5% in Water (Mini-Bag+) 100 ML IVPB SCH (18:15)
[2016-07-27] MEDS: risperiDONE 1 MG TABLET PO SCH (20:41)
[2016-07-28] MEDS: TRIMETH IVPB SCH (00:36)
[2016-07-28] MEDS: D5 IVPB SCH (00:36)
[2016-07-28] MEDS: MetroNIDAZOLE 500 MG/100 ML 500 MG/100 ML BAG IVPB SCH ×2 (00:36→08:24)
[2016-07-28] MEDS: WATER IVPB SCH (00:36)
[2016-07-28] MEDS: SULFAMETHOXAZOLE IVPB SCH (00:36)
[2016-07-28] MEDS: Ipratropium/Albuterol Neb 3 ML IH SCH (04:02)
[2016-07-28] MEDS ORDERED: *HR* Metoprolol 5 MG/5 ML VIAL IVP ONE (04:04)
[2016-07-28] MEDS: *HR* Heparin 5,000 UNIT/ML VIAL SQ SCH (04:47)
[2016-07-28 06:26] LABS: Basophils # 0.1 K/mcL (0.0-0.2); Basophils % 0.2 %; Eosinophils % 0.2 %; Hematocrit 28.9 % (37.5-50.1); Hemoglobin 9.3 g/dL (12.9-16.9); Immature Granulocytes % 1.6 % (0-4); Lymphocytes # 0.4 K/mcL (0.6-4.6); Lymphocytes % 1.7 %; Mean Corpuscular HGB Conc 32.2 g/dL (31.6-35.5); Mean Corpuscular Hemoglobin 25.1 pg (28.0-33.3); Mean Corpuscular Volume 77.9 fL (83.0-100.0); Mean Platelet Volume 12.2 fL (9.4-12.4); Monocytes % 5.9 %; Neutrophils # 22.2 K/mcL (1.6-8.9); Platelet Count 591 K/mcL (140-400); Red Blood Count 3.71 M/mcL (4.19-5.50); Red Cell Distribution Width 18.6 % (11.5-14.5); Segmented Neutrophils % 90.4 %
[2016-07-28 06:38] LABS: Eosinophils # 0.1 K/mcL (0.0-0.6); Monocytes # 1.5 K/mcL (0.0-1.3)
[2016-07-28 06:39] LABS: Calcium 7.6 mg/dL (8.6-10.8); Potassium 3.6 mEq/L (3.5-4.5)
[2016-07-28 06:52] LABS: Large Platelets Present (Not Present); Platelet Estimate Increased (Normal)
[2016-07-28] MEDS: D5% in 0.45% NACL 1,000 ML IVC SCH (08:24)
[2016-07-28] MEDS: Diltiazem CD (24hr) 180 MG CAPSULE PO SCH (08:25)
[2016-07-28] MEDS: Lactobacillus 1 EACH CAP.SPRINK PO SCH (08:25)
[2016-07-28] MEDS: predniSONE 20 MG TABLET PO SCH (08:25)
[2016-07-28] MEDS ORDERED: *HR* LORazepam 1 MG TABLET PO PRN (09:26)
--- NOTE | 2016-07-28 09:32 | Palliative Progress Note ---
Date of Encounter: 07/28/16 Time of Encounter: 09:30 - Assessment and plan (1) Abdominal pain Current Visit: Yes Status: Acute Assessment and plan: Patient CT demonstrated ischemic gut. He appears to be in distress when examined. Will begin scheduled low dose Morphine every 4 hours and allow every hour PRN. Monitor and adjust as needed. (2) Restlessness Current Visit: Yes Status: Acute Assessment and plan: Will begin Lorazepam PRN and monitor (3) Goals of care, counseling/discussion Current Visit: Yes Status: Acute Assessment and plan: Patient guardian/commonwealth attorney, Mr Donal Newman contacted me last pm and discussed pt situation. He stated that pt quality of life has diminished over the last few years. He understands that he is not a surgical candidate and that pt has life threatening condition, and will not likely survive long. He did agree with transitioning pt to DNR-Comfort care and providing him with comfort medications. He stated he would contact [facility] and let them know of his condition. I discussed with him, that if he survives the weekend, we could transition him to inpt hospice care, however, hospice would need to have him complete paperwork associated with that transition of care. He verbalized understanding. D/W Dr. Chavarria. Will continue to follow closely. (4) Ischemic bowel disease Current Visit: Yes Status: Acute (5) Sepsis Current Visit: Yes Status: Acute Qualifiers: Sepsis type: sepsis due to unspecified organism Qualified Code(s): A41.9 - Sepsis, unspecified organism (6) Pneumonia Current Visit: Yes Status: Acute Qualifiers: Pneumonia type: due to unspecified organism Laterality: left Lung location: lower lobe of lung Qualified Code(s): J18.1 - Lobar pneumonia, unspecified organism (7) UTI (urinary tract infection) Current Visit: Yes Status: Acute Qualifiers: Urinary tract infection type: site unspecified Hematuria presence: without hematuria Qualified Code(s): N39.0 - Urinary tract infection, site not specified - Time Spent With Patient Total time spent is greater than 50% in coordination of care (as documented) at patient's floor/unit and/or counseling patient: 25 - 35 minutes - Subjective Interval history: Patient minimally responsive. Opens eyes occasionally. Patient mouth quivers when examined. Febrile. Resp rate 30/min. Currently on NRB mask. Appears in mild distress. No visitors present - Constitutional Vitals: Abnormal lab results WBC 24.6 K/mcL (4.3-11.1) H 07/28/16 06:15 RBC 3.71 M/mcL (4.19-5.50) L 07/28/16 06:15 Hgb 9.3 g/dL (12.9-16.9) L 07/28/16 06:15 Hct 28.9 % (37.5-50.1) L 07/28/16 06:15 MCV 77.9 fL (83.0-100.0) L 07/28/16 06:15 MCH 25.1 pg (28.0-33.3) L 07/28/16 06:15 RDW 18.6 % (11.5-14.5) H 07/28/16 06:15 Plt Count 591 K/mcL (140-400) H 07/28/16 06:15 Neutrophils # 22.2 K/mcL (1.6-8.9) H 07/28/16 06:15 Lymphocytes # 0.4 K/mcL (0.6-4.6) L 07/28/16 06:15 Monocytes # 1.5 K/mcL (0.0-1.3) H 07/28/16 06:15 Reactive Lymphocytes Present (Not Present) A 07/25/16 06:42 Platelet Estimate Increased (Normal) H 07/28/16 06:15 Large Platelets Present (Not Present) A 07/28/16 06:15 Immature Plt Fraction 18.1 % (1.1-6.1) H 07/25/16 06:42 Poikilocytosis 2+ (Not Present) A 07/27/16 14:38 Anisocytosis 2+ (Not Present) A 07/27/16 14:38 Microcytosis Present (Not Present) A 07/27/16 14:38 PT 14.3 Seconds (9.4-12.1) H 07/27/16 04:15 APTT 25.2 Seconds (26.0-36.0) L 07/26/16 04:31 ABG pCO2 32 mmHg (35-45) L 07/23/16 20:25 ABG pO2 65 mmHg (85-104) L 07/23/16 20:25 ABG HCO3 20.3 mEQ/L (21-27) L 07/23/16 20:25 ABG O2 Saturation 93 % (95-98) L 07/23/16 20:25 ABG Base Excess -3.6 mEq/L (-2.0 to 3.0) L 07/23/16 20:25 VBG pCO2 32 mmHg (41-51) L 07/26/16 22:58 VBG pO2 54 mmHg (25-40) H 07/26/16 22:58 VBG HCO3 20.8 mEq/L (21-27) L 07/26/16 22:58 Chloride 113 mEq/L (98-109) H 07/28/16 06:15 Carbon Dioxide 16 mEq/L (19-29) L 07/28/16 06:15 BUN 55 mg/dL (8-26) H 07/28/16 06:15 Creatinine 1.82 mg/dL (0.72-1.25) H 07/28/16 06:15 Est GFR ( Amer) 43 (> 60) L 07/28/16 06:15 Est GFR (Non-Af Amer) 36 (> 60) L 07/28/16 06:15 BUN/Creatinine Ratio 30 (6-26) H 07/28/16 06:15 Glucose 205 mg/dL (70-99) H 07/28/16 06:15 POC Glucose 215 (58-89) H 07/28/16 01:27 Calculated Osmolality 311 (280-300) H 07/28/16 06:15 Lactic Acid 2.9 mmol/L (0.5-2.2) H 07/28/16 06:15 Calcium 7.6 mg/dL (8.6-10.8) L 07/28/16 06:15 B-Natriuretic Peptide 202 pg/mL (0-100) H 07/26/16 22:58 Albumin 2.6 g/dL (3.5-5.0) L 07/27/16 04:15 Globulin 3.7 g/dL (2.4-3.5) H 07/27/16 04:15 Albumin/Globulin Ratio 0.7 (1.1-2.2) L 07/27/16 04:15 Prolactin 50.71 ng/mL (3.46-19.40) H 07/26/16 22:58 Urine Clarity Turbid (Clear) A 07/24/16 00:50 Urine Protein 100 mg/dL (Neg-Trace) H 07/24/16 00:50 Urine Ketones 15 mg/dL (Negative) H 07/24/16 00:50 Urine Blood Large (Negative) H 07/24/16 00:50 Ur Leukocyte Esterase Large (Negative) H 07/24/16 00:50 Urine Microscopic RBC 30-50 per hpf (0-3) H 07/24/16 00:50 Urine Microscopic WBC TNTC per hpf (0-3) H 07/24/16 00:50 Ur Squamous Epith Cells Many per lpf (None-Few) H 07/24/16 00:50 Urine Bacteria Many per hpf (None-Few) H 07/24/16 00:50 Ur Culture Indicated? YES (NO) A 07/24/16 00:50 General appearance: Present: mild distress - Respiratory Respiratory exam: Present: decreased breath sounds, CTAB Additional comments: Shallow inspiratory effort - Cardiovascular Cardiovascular exam: Present: irregular rhythm - GI/Abdominal GI/Abdominal exam: Present: distended, firm, hypoactive bowel sounds - Additional comments: Victoria with light mary jo urine - Extremities Exam Extremities exam: Present: normal capillary refill, normal inspection - Neurological Exam Additional comments: Minimally responsive. Opens eyes occasionally with tactile stimuli. - Skin Skin exam: Present: dry, pallor, warm Palliative Quality Palliative Quality: Screen for Code Status: Yes (Waiting to discuss with guardian), Screen for Goals of Care: Yes, Screen for Pain: Yes, If Pain Regimen Started, Initiate Bowel Regimen: NA, Screen for Nausea/Vomitting: No Code Status: 07/23/16 20:39 Resuscitation Status: Active [RES] Routine Comment: Resuscitation Status: Full Code 07/27/16 19:33 DNR [Resuscitation Status: Active] [RES] Routine Comment: Resuscitation Status: DNR-Comfort Care - Labs CBC & Chem 7: 07/28/16 06:15 07/28/16 06:15 Labs: Laboratory Results - last 24 hr 07/27/16 07/27/16 07/27/16 04:15 07:45 14:15 WBC RBC Hgb Hct MCV MCH MCHC RDW Plt Count MPV Immature Gran % Seg Neutrophils % Lymphocytes % Monocytes % Eosinophils % Basophils % Neutrophils # Lymphocytes # Monocytes # Eosinophils # Basophils # Platelet Estimate Large Platelets Poikilocytosis Anisocytosis Microcytosis Sodium 142 Potassium 3.9 Chloride 113 H Carbon Dioxide 17 L BUN 49 H Creatinine 1.60 H Est GFR ( Amer) 50 L Est GFR (Non-Af Amer) 41 L BUN/Creatinine Ratio 31 H Glucose 257 H POC Glucose 205 H Calculated Osmolality 316 H Lactic Acid Calcium 8.3 L Total Bilirubin 0.3 Direct Bilirubin 0.1 Indirect Bilirubin 0.2 AST 29 ALT 13 Alkaline Phosphatase 99 Serum Total Protein 6.3 Albumin 2.6 L Globulin 3.7 H Albumin/Globulin Ratio 0.7 L 07/27/16 07/27/16 07/27/16 14:38 15:53 16:02 WBC 28.8 H D RBC 4.11 L Hgb 10.2 L Hct 32.3 L MCV 78.6 L MCH 24.8 L MCHC 31.6 RDW 18.5 H Plt Count 602 H D MPV 12.5 H Immature Gran % Seg Neutrophils % 100.0 Lymphocytes % Test Not Performed Monocytes % Eosinophils % Basophils % Neutrophils # 28.8 H Lymphocytes # SUBACUTE NURSE Monocytes # Eosinophils # Basophils # Platelet Estimate Increased H Large Platelets Present A Poikilocytosis 2+ A Anisocytosis 2+ A Microcytosis Present A Sodium Potassium Chloride Carbon Dioxide BUN Creatinine Est GFR ( Amer) Est GFR (Non-Af Amer) BUN/Creatinine Ratio Glucose POC Glucose 289 H Calculated Osmolality Lactic Acid 3.3 H Calcium Total Bilirubin Direct Bilirubin Indirect Bilirubin AST ALT Alkaline Phosphatase Serum Total Protein Albumin Globulin Albumin/Globulin Ratio 07/28/16 07/28/16 07/28/16 01:27 06:15 06:15 WBC 24.6 H RBC 3.71 L Hgb 9.3 L Hct 28.9 L MCV 77.9 L MCH 25.1 L MCHC 32.2 RDW 18.6 H Plt Count 591 H MPV 12.2 Immature Gran % 1.6 Seg Neutrophils % 90.4 Lymphocytes % 1.7 Monocytes % 5.9 Eosinophils % 0.2 Basophils % 0.2 Neutrophils # 22.2 H Lymphocytes # 0.4 L Monocytes # 1.5 H Eosinophils # 0.1 Basophils # 0.1 Platelet Estimate Increased H Large Platelets Present A Poikilocytosis Anisocytosis Microcytosis Sodium 140 Potassium 3.6 Chloride 113 H Carbon Dioxide 16 L BUN 55 H Creatinine 1.82 H Est GFR ( Amer) 43 L Est GFR (Non-Af Amer) 36 L BUN/Creatinine Ratio 30 H Glucose 205 H POC Glucose 215 H Calculated Osmolality 311 H Lactic Acid Calcium 7.6 L Total Bilirubin Direct Bilirubin Indirect Bilirubin AST ALT Alkaline Phosphatase Serum Total Protein Albumin Globulin Albumin/Globulin Ratio 07/28/16 06:15 WBC RBC Hgb Hct MCV MCH MCHC RDW Plt Count MPV Immature Gran % Seg Neutrophils % Lymphocytes % Monocytes % Eosinophils % Basophils % Neutrophils # Lymphocytes # Monocytes # Eosinophils # Basophils # Platelet Estimate Large Platelets Poikilocytosis Anisocytosis Microcytosis Sodium Potassium Chloride Carbon Dioxide BUN Creatinine Est GFR ( Amer) Est GFR (Non-Af Amer) BUN/Creatinine Ratio Glucose POC Glucose Calculated Osmolality Lactic Acid 2.9 H Calcium Total Bilirubin Direct Bilirubin Indirect Bilirubin AST ALT Alkaline Phosphatase Serum Total Protein Albumin Globulin Albumin/Globulin Ratio - Impressions Impressions Chest CT 07/27/16 10:00 IMPRESSION: 1. Multifocal pneumonia, worst in the bilateral bases. 2. Gas is identified in the liver of unclear etiology. Finding may represent portal venous gas versus pneumobilia. Recommend dedicated CT abdomen and pelvis (with contrast if possible) as clinically warranted. D/ / 07/27/2016 11:04:16 Radha Barrios MD / Macrina Gross Interpreting Provider: Radha Barrios MD Abdomen/Pelvis CT 07/27/16 13:00 IMPRESSION: 1. Pneumatosis involving small bowel loops in the right lower quadrant and upper pelvis with associated portal venous gas. More distal portal venous gas within branches of the right and left portal veins correspond with findings on the earlier CT. The findings suggest small bowel ischemia. There are no findings of pneumoperitoneum or abscess. Critical results were called by Dr. Marc Gamez MD to Sravani Chavarria on 07/27/2016 at 14:45. 2. Markedly dilated proximal small bowel loops either due to ileus or partial obstruction from the above small bowel loops. Ileus is favored given dilation of much of the colon. 3. Liquid stool in the right hemicolon, suggesting diarrhea. 4. Bibasilar multifocal pneumonia as on the prior study. 5. Diffuse urinary bladder wall thickening with perivesical stranding, suggesting cystitis (although a component of chronic outlet obstruction is likely present). The wall thickening is asymmetrically more prominent on the left, potentially related to the presence of incompletely distended diverticula. However, underlying malignancy is not excluded. 6. Additional incidental findings as above. D/ / Marc Gamez MD / Marc Gamez MD Interpreting Provider: Marc Gamez MD - ABG Interpretation ABG results: ABG ABG pH 7.41 pH Units (7.32-7.45) 07/23/16 20:25 ABG pCO2 32 mmHg (35-45) L 07/23/16 20:25 ABG pO2 65 mmHg (85-104) L 07/23/16 20:25 ABG O2 Saturation 93 % (95-98) L 07/23/16 20:25 PT/INR, D-dimer PT 14.3 Seconds (9.4-12.1) H 07/27/16 04:15 Consult Discharge Plan - Plan [facility]errals: [facility] [Primary Care Provider[facility] - (PT IS FROM [facility] THEY WILL SEE PATIENT THERE. NO PCP APPOINTMENT NEEDED)
[2016-07-28] MEDS: *HR* Morphine 2 MG/ML SYRINGE IVP PRN (10:20)
[2016-07-28] MEDS: *HR* Morphine 2 MG/ML SYRINGE IVP SCH ×3 (10:20→15:46)
[2016-07-28] MEDS: Atropine Sulfate 1% 40 DROP/2 ML BOTTLE SL PRN (11:40)
--- NOTE | 2016-07-28 14:40 | Internal Med Progress Note ---
Date of Encounter: 07/28/16 Time of Encounter: 12:15 - Assessment and plan (1) Ischemic bowel disease Current Visit: Yes Status: Acute Assessment and plan: CT abdomen/pelvis is suggestive of ischemic small bowel with portal venous gas. Worsening leukocytosis along with mild lactic acidosis and respiratory failure. Patient with a very poor prognosis. Surgery has been consulted and patient is deemed a poor surgical candidate with no expected meaningful postoperative recovery. He is changed to comfort care measures at this time. Palliative care team on board, goals of care discussed with patient's legal guardian, who is in agreement with comfort care measures. Awaiting transition to inpatient hospice after the guardian signs paperwork, depending on patient's progression. Continue IV hydration along with supplemental oxygen, when necessary IV morphine and Ativan for respiratory distress/pain control/agitation. (2) MANUEL (acute kidney injury) Current Visit: Yes Status: Acute Assessment and plan: Noted to be worsening, likely related to dehydration and ischemic bowel. Patient is currently on palliative care, continue IV hydration. (3) Acute respiratory failure Current Visit: Yes Status: Acute Assessment and plan: Continue supportive care with supplemental oxygen along with when necessary IV morphine. Poor prognosis. Currently on palliative care. Qualifiers: Respiratory failure complication: hypoxia Qualified Code(s): J96.01 - Acute respiratory failure with hypoxia (4) Atrial fibrillation with RVR Current Visit: Yes Status: Ruled-out (5) Pneumonia Current Visit: Yes Status: Acute Qualifiers: Pneumonia type: due to unspecified organism Laterality: left Lung location: lower lobe of lung Qualified Code(s): J18.1 - Lobar pneumonia, unspecified organism (6) UTI (urinary tract infection) Current Visit: Yes Status: Acute Qualifiers: Urinary tract infection type: site unspecified Hematuria presence: without hematuria Qualified Code(s): N39.0 - Urinary tract infection, site not specified (7) Cirrhosis of liver Current Visit: Yes Status: Chronic Qualifiers: Hepatic cirrhosis type: unspecified hepatic cirrhosis Ascites presence: with ascites Qualified Code(s): K74.60 - Unspecified cirrhosis of liver (8) Dementia Current Visit: Yes Status: Chronic Qualifiers: Dementia type: Alzheimer's disease Alzheimer's disease onset: late-onset Dementia behavioral disturbance: without behavioral disturbance Qualified Code (s): G30.1 - Alzheimer's disease with late onset; F02.80 - Dementia in other diseases classified elsewhere without behavioral disturbance (9) Hypertension Current Visit: Yes Status: Chronic Qualifiers: Hypertension type: essential hypertension Qualified Code(s): I10 - Essential (primary) hypertension (10) Hypokalemia Current Visit: Yes Status: Resolved - Subjective Interval history: Noted to be worsening. Not arousable to touch or speech, noted to have difficulty breathing and some distress; - Constitutional Vitals: Temp Pulse Resp BP Pulse Ox 98.3 F 65 24 117/50 77 L 07/28/16 12:18 07/28/16 12:18 07/28/16 12:18 07/28/16 12:18 07/28/16 12:18 General appearance: Present: A&O X 0 (Lethargic and not responsive to verbal or tactile stimuli), mild distress - Respiratory Respiratory exam: Present: CTAB (Bilateral coarse breath sounds), tachypnea. Absent: accessory muscle use, rales, rhonchi, wheezes - Cardiovascular Cardiovascular exam: Present: irregular rhythm, +S1, +S2, tachycardia. Absent: diastolic murmur, gallop, rubs, systolic murmur - GI/Abdominal GI/Abdominal exam: Present: distended, hyperactive bowel sounds (Hyperactive bowel sounds on the left side), normal bowel sounds, soft, no peritoneal signs. Absent: tenderness Internal Medicine: Result - Labs CBC & Chem 7: 07/28/16 06:15 07/28/16 06:15 Labs: Short CBC 07/27/16 07/28/16 Range/Units 14:38 06:15 WBC 28.8 H D 24.6 H (4.3-11.1) K/mcL Hgb 10.2 L 9.3 L (12.9-16.9) g/dL Hct 32.3 L 28.9 L (37.5-50.1) % Plt Count 602 H D 591 H (140-400) K/mcL Neutrophils # 28.8 H 22.2 H (1.6-8.9) K/mcL BMP 07/27/16 07/28/16 14:15 06:15 Sodium 142 140 Potassium 3.9 3.6 Chloride 113 H 113 H Carbon Dioxide 17 L 16 L BUN 49 H 55 H Creatinine 1.60 H 1.82 H Glucose 257 H 205 H Calcium 8.3 L 7.6 L Liver Function 07/27/16 Range/Units 04:15 Total Bilirubin 0.3 (0.2-1.2) mg/dL Direct Bilirubin 0.1 (0.0-0.5) mg/dL AST 29 (5-34) Units/L ALT 13 (0-55) Units/L Alkaline Phosphatase 99 (38-126) Units/L Albumin 2.6 L (3.5-5.0) g/dL - ABG Interpretation ABG results: ABG ABG pH 7.41 pH Units (7.32-7.45) 07/23/16 20:25 ABG pCO2 32 mmHg (35-45) L 07/23/16 20:25 ABG pO2 65 mmHg (85-104) L 07/23/16 20:25 ABG O2 Saturation 93 % (95-98) L 07/23/16 20:25 PT/INR, D-dimer PT 14.3 Seconds (9.4-12.1) H 07/27/16 04:15 - Impressions Impressions Chest CT 07/27/16 10:00 IMPRESSION: 1. Multifocal pneumonia, worst in the bilateral bases. 2. Gas is identified in the liver of unclear etiology. Finding may represent portal venous gas versus pneumobilia. Recommend dedicated CT abdomen and pelvis (with contrast if possible) as clinically warranted. D/ / 07/27/2016 11:04:16 Radha Barrios MD / Macrina Gross Interpreting Provider: Radha Barrios MD Abdomen/Pelvis CT 07/27/16 13:00 IMPRESSION: 1. Pneumatosis involving small bowel loops in the right lower quadrant and upper pelvis with associated portal venous gas. More distal portal venous gas within branches of the right and left portal veins correspond with findings on the earlier CT. The findings suggest small bowel ischemia. There are no findings of pneumoperitoneum or abscess. Critical results were called by Dr. Marc Gamez MD to Sravani Chavarria on 07/27/2016 at 14:45. 2. Markedly dilated proximal small bowel loops either due to ileus or partial obstruction from the above small bowel loops. Ileus is favored given dilation of much of the colon. 3. Liquid stool in the right hemicolon, suggesting diarrhea. 4. Bibasilar multifocal pneumonia as on the prior study. 5. Diffuse urinary bladder wall thickening with perivesical stranding, suggesting cystitis (although a component of chronic outlet obstruction is likely present). The wall thickening is asymmetrically more prominent on the left, potentially related to the presence of incompletely distended diverticula. However, underlying malignancy is not excluded. 6. Additional incidental findings as above. D/ / Marc Gamez MD / Marc Gamez MD Interpreting Provider: Marc Gamez MD Consult Discharge Plan - Plan [facility]errals: [facility] [Primary Care Provider] - (PT IS FROM [facility] THEY WILL SEE PATIENT THERE. NO PCP APPOINTMENT NEEDED)
[2016-07-29] MEDS: *HR* Morphine 2 MG/ML SYRINGE IVP SCH ×4 (00:33→09:38)
[2016-07-29] MEDS: Acetaminophen 650 MG RECTAL SUPP RC PRN ×4 (00:36→22:51)
[2016-07-29] MEDS ORDERED: D5 IVPB SCH (01:00)
[2016-07-29] MEDS ORDERED: TRIMETH IVPB SCH (01:00)
[2016-07-29] MEDS ORDERED: WATER IVPB SCH (01:00)
[2016-07-29] MEDS ORDERED: SULFAMETHOXAZOLE IVPB SCH (01:00)
[2016-07-29] MEDS: Atropine Sulfate 1% 40 DROP/2 ML BOTTLE SL PRN ×6 (04:50→22:52)
[2016-07-29] MEDS: *HR* Morphine 2 MG/ML SYRINGE IVP PRN ×4 (06:06→18:09)
[2016-07-29] MEDS ORDERED: *HR* LORazepam 2 MG/ML VIAL IVP PRN (09:11)
--- NOTE | 2016-07-29 09:43 | Palliative Progress Note ---
Date of Encounter: 07/29/16 Time of Encounter: 09:40 - Assessment and plan (1) Abdominal pain Current Visit: Yes Status: Acute Assessment and plan: He has had scheduled Morphine with a couple of breakthrough doses, yet this am he appears in some distress. He makes some facial movements and possibly some grimacing with assessment. Will begin Morphine drip and continue boluses as needed for breakthrough discomfort. (2) Restlessness Current Visit: Yes Status: Acute Assessment and plan: Continue Ativan PRN. (3) Goals of care, counseling/discussion Current Visit: Yes Status: Acute Assessment and plan: Do not anticipate he will survive much longer. Will begin continuous low dose Morphine to ensure he is comfortable. (4) Ischemic bowel disease Current Visit: Yes Status: Acute (5) Sepsis Current Visit: Yes Status: Acute Qualifiers: Sepsis type: sepsis due to unspecified organism Qualified Code(s): A41.9 - Sepsis, unspecified organism (6) Pneumonia Current Visit: Yes Status: Acute Qualifiers: Pneumonia type: due to unspecified organism Laterality: left Lung location: lower lobe of lung Qualified Code(s): J18.1 - Lobar pneumonia, unspecified organism (7) UTI (urinary tract infection) Current Visit: Yes Status: Acute Qualifiers: Urinary tract infection type: site unspecified Hematuria presence: without hematuria Qualified Code(s): N39.0 - Urinary tract infection, site not specified - Time Spent With Patient Total time spent is greater than 50% in coordination of care (as documented) at patient's floor/unit and/or counseling patient: - Subjective Interval history: Patient not responsive to voice, but appears to be stimulated some with assessment. Febrile last 24 hours with temps greater than 103. Oxygen saturations in the 60's if accurate. RR 30 at this time. - Constitutional Vitals: Abnormal lab results WBC 24.6 K/mcL (4.3-11.1) H 07/28/16 06:15 RBC 3.71 M/mcL (4.19-5.50) L 07/28/16 06:15 Hgb 9.3 g/dL (12.9-16.9) L 07/28/16 06:15 Hct 28.9 % (37.5-50.1) L 07/28/16 06:15 MCV 77.9 fL (83.0-100.0) L 07/28/16 06:15 MCH 25.1 pg (28.0-33.3) L 07/28/16 06:15 RDW 18.6 % (11.5-14.5) H 07/28/16 06:15 Plt Count 591 K/mcL (140-400) H 07/28/16 06:15 Neutrophils # 22.2 K/mcL (1.6-8.9) H 07/28/16 06:15 Lymphocytes # 0.4 K/mcL (0.6-4.6) L 07/28/16 06:15 Monocytes # 1.5 K/mcL (0.0-1.3) H 07/28/16 06:15 Reactive Lymphocytes Present (Not Present) A 07/25/16 06:42 Platelet Estimate Increased (Normal) H 07/28/16 06:15 Large Platelets Present (Not Present) A 07/28/16 06:15 Immature Plt Fraction 18.1 % (1.1-6.1) H 07/25/16 06:42 Poikilocytosis 2+ (Not Present) A 07/27/16 14:38 Anisocytosis 2+ (Not Present) A 07/27/16 14:38 Microcytosis Present (Not Present) A 07/27/16 14:38 PT 14.3 Seconds (9.4-12.1) H 07/27/16 04:15 APTT 25.2 Seconds (26.0-36.0) L 07/26/16 04:31 ABG pCO2 32 mmHg (35-45) L 07/23/16 20:25 ABG pO2 65 mmHg (85-104) L 07/23/16 20:25 ABG HCO3 20.3 mEQ/L (21-27) L 07/23/16 20:25 ABG O2 Saturation 93 % (95-98) L 07/23/16 20:25 ABG Base Excess -3.6 mEq/L (-2.0 to 3.0) L 07/23/16 20:25 VBG pCO2 32 mmHg (41-51) L 07/26/16 22:58 VBG pO2 54 mmHg (25-40) H 07/26/16 22:58 VBG HCO3 20.8 mEq/L (21-27) L 07/26/16 22:58 Chloride 113 mEq/L (98-109) H 07/28/16 06:15 Carbon Dioxide 16 mEq/L (19-29) L 07/28/16 06:15 BUN 55 mg/dL (8-26) H 07/28/16 06:15 Creatinine 1.82 mg/dL (0.72-1.25) H 07/28/16 06:15 Est GFR ( Amer) 43 (> 60) L 07/28/16 06:15 Est GFR (Non-Af Amer) 36 (> 60) L 07/28/16 06:15 BUN/Creatinine Ratio 30 (6-26) H 07/28/16 06:15 Glucose 205 mg/dL (70-99) H 07/28/16 06:15 POC Glucose 175 (58-89) H 07/28/16 06:04 Calculated Osmolality 311 (280-300) H 07/28/16 06:15 Lactic Acid 2.9 mmol/L (0.5-2.2) H 07/28/16 06:15 Calcium 7.6 mg/dL (8.6-10.8) L 07/28/16 06:15 B-Natriuretic Peptide 202 pg/mL (0-100) H 07/26/16 22:58 Albumin 2.6 g/dL (3.5-5.0) L 07/27/16 04:15 Globulin 3.7 g/dL (2.4-3.5) H 07/27/16 04:15 Albumin/Globulin Ratio 0.7 (1.1-2.2) L 07/27/16 04:15 Prolactin 50.71 ng/mL (3.46-19.40) H 07/26/16 22:58 Urine Clarity Turbid (Clear) A 07/24/16 00:50 Urine Protein 100 mg/dL (Neg-Trace) H 07/24/16 00:50 Urine Ketones 15 mg/dL (Negative) H 07/24/16 00:50 Urine Blood Large (Negative) H 07/24/16 00:50 Ur Leukocyte Esterase Large (Negative) H 07/24/16 00:50 Urine Microscopic RBC 30-50 per hpf (0-3) H 07/24/16 00:50 Urine Microscopic WBC TNTC per hpf (0-3) H 07/24/16 00:50 Ur Squamous Epith Cells Many per lpf (None-Few) H 07/24/16 00:50 Urine Bacteria Many per hpf (None-Few) H 07/24/16 00:50 Ur Culture Indicated? YES (NO) A 07/24/16 00:50 General appearance: Present: mild distress - Respiratory Additional comments: Rhonchi throughout all lung leyva. Oxygen at 4 lpm - Cardiovascular Cardiovascular exam: Present: irregular rhythm - GI/Abdominal GI/Abdominal exam: Present: distended, hypoactive bowel sounds - Additional comments: Urine light mary jo in color - Extremities Exam Additional comments: some faint mottling noted - Neurological Exam Additional comments: Minimally responsive - Skin Skin exam: Present: dry, pallor, warm Palliative Quality Palliative Quality: Screen for Code Status: Yes (Waiting to discuss with guardian), Screen for Goals of Care: Yes, Screen for Pain: Yes, If Pain Regimen Started, Initiate Bowel Regimen: NA, Screen for Nausea/Vomitting: No Code Status: 07/23/16 20:39 Resuscitation Status: Active [RES] Routine Comment: Resuscitation Status: Full Code 07/27/16 19:33 DNR [Resuscitation Status: Active] [RES] Routine Comment: Resuscitation Status: DNR-Comfort Care - Labs CBC & Chem 7: 07/28/16 06:15 07/28/16 06:15 Labs: Laboratory Results - last 24 hr 07/28/16 06:04 POC Glucose 175 H - ABG Interpretation ABG results: ABG ABG pH 7.41 pH Units (7.32-7.45) 07/23/16 20:25 ABG pCO2 32 mmHg (35-45) L 07/23/16 20:25 ABG pO2 65 mmHg (85-104) L 07/23/16 20:25 ABG O2 Saturation 93 % (95-98) L 07/23/16 20:25 PT/INR, D-dimer PT 14.3 Seconds (9.4-12.1) H 07/27/16 04:15 Consult Discharge Plan - Plan Referrals: [facility],PCP [Primary Care Provider] - (PT IS FROM [facility] THEY WILL SEE PATIENT THERE. NO PCP APPOINTMENT NEEDED)
[2016-07-29] MEDS ORDERED: 0.9 % Sodium Chloride 500 ML IVC SCH (09:45)
[2016-07-29] MEDS ORDERED: 0.9 % Sodium Chloride 500 ML ONE (10:42)
[2016-07-29] MEDS: *HR* Morphine 30 MG/ 30 ML PCA IVC SCH ×2 (10:48→23:49)
--- NOTE | 2016-07-29 17:26 | Internal Med Progress Note ---
Date of Encounter: 07/29/16 Time of Encounter: 12:20 - Assessment and plan (1) Ischemic bowel disease Current Visit: Yes Status: Acute Assessment and plan: CT abdomen/pelvis is suggestive of ischemic small bowel with portal venous gas. Patient with a very poor prognosis. Surgery has been consulted and patient is deemed a poor surgical candidate with no expected meaningful postoperative recovery. He is on comfort care measures at this time. Palliative care team on board, goals of care discussed with patient's legal guardian, who is in agreement with comfort care measures. Awaiting transition to inpatient hospice after the guardian signs paperwork, depending on patient's progression. Continue gentle IV hydration along with supplemental oxygen, when necessary IV morphine and Ativan for respiratory distress/pain control/agitation. Patient has also been started on IV Morphine drip for continued distress; (2) MANUEL (acute kidney injury) Current Visit: Yes Status: Acute (3) Acute respiratory failure Current Visit: Yes Status: Acute Qualifiers: Respiratory failure complication: hypoxia Qualified Code(s): J96.01 - Acute respiratory failure with hypoxia (4) Atrial fibrillation with RVR Current Visit: Yes Status: Ruled-out (5) Pneumonia Current Visit: Yes Status: Acute Qualifiers: Pneumonia type: due to unspecified organism Laterality: left Lung location: lower lobe of lung Qualified Code(s): J18.1 - Lobar pneumonia, unspecified organism (6) UTI (urinary tract infection) Current Visit: Yes Status: Acute Qualifiers: Urinary tract infection type: site unspecified Hematuria presence: without hematuria Qualified Code(s): N39.0 - Urinary tract infection, site not specified (7) Cirrhosis of liver Current Visit: Yes Status: Chronic Qualifiers: Hepatic cirrhosis type: unspecified hepatic cirrhosis Ascites presence: with ascites Qualified Code(s): K74.60 - Unspecified cirrhosis of liver (8) Dementia Current Visit: Yes Status: Chronic Qualifiers: Dementia type: Alzheimer's disease Alzheimer's disease onset: late-onset Dementia behavioral disturbance: without behavioral disturbance Qualified Code (s): G30.1 - Alzheimer's disease with late onset; F02.80 - Dementia in other diseases classified elsewhere without behavioral disturbance (9) Hypertension Current Visit: Yes Status: Chronic Qualifiers: Hypertension type: essential hypertension Qualified Code(s): I10 - Essential (primary) hypertension (10) Hypokalemia Current Visit: Yes Status: Resolved - Subjective Interval history: Somnolent and comatose, not responding to verbal or tactile stimuli; rapid breathing and fever; - Constitutional Vitals: Temp Pulse Resp BP Pulse Ox 100.5 F H 117 20 79/42 63 L 07/29/16 15:10 07/29/16 15:10 07/29/16 15:10 07/29/16 15:10 07/29/16 15:10 General appearance: Present: A&O X 0 (Lethargic and not responsive to verbal or tactile stimuli; febrile), mild distress - Respiratory Respiratory exam: Present: CTAB (coarse breath sounds B/L). Absent: accessory muscle use, rales, rhonchi, wheezes - Cardiovascular Cardiovascular exam: Present: RRR, +S1, +S2, tachycardia. Absent: diastolic murmur, gallop, rubs, systolic murmur - GI/Abdominal GI/Abdominal exam: Present: diminished bowel sounds, distended, soft, no peritoneal signs. Absent: tenderness Internal Medicine: Result - Labs CBC & Chem 7: 07/28/16 06:15 07/28/16 06:15 - ABG Interpretation ABG results: ABG ABG pH 7.41 pH Units (7.32-7.45) 07/23/16 20:25 ABG pCO2 32 mmHg (35-45) L 07/23/16 20:25 ABG pO2 65 mmHg (85-104) L 07/23/16 20:25 ABG O2 Saturation 93 % (95-98) L 07/23/16 20:25 PT/INR, D-dimer PT 14.3 Seconds (9.4-12.1) H 07/27/16 04:15 Consult Discharge Plan - Plan Referrals: [facility],PCP [Primary Care Provider] - (PT IS FROM [facility] THEY WILL SEE PATIENT THERE. NO PCP APPOINTMENT NEEDED)
[2016-07-29 21:33] VITALS: BP 92/46
[2016-07-30] MEDS: Atropine Sulfate 1% 40 DROP/2 ML BOTTLE SL PRN (02:14)
--- NOTE | 2016-08-14 08:25 | Discharge Summary ---
Date of Encounter: 07/30/16 Time of Encounter: 08:00 - Discharge Diagnosis (1) Ischemic bowel disease Priority: Primary Status: Acute (2) MANUEL (acute kidney injury) Priority: Primary Status: Acute (3) Acute respiratory failure Priority: Primary Status: Acute Qualifiers: Respiratory failure complication: hypoxia Qualified Code(s): J96.01 - Acute respiratory failure with hypoxia (4) Atrial fibrillation with RVR Priority: Primary Status: Ruled-out (5) Pneumonia Priority: Primary Status: Acute Qualifiers: Pneumonia type: due to unspecified organism Laterality: left Lung location: lower lobe of lung Qualified Code(s): J18.1 - Lobar pneumonia, unspecified organism (6) UTI (urinary tract infection) Priority: Primary Status: Acute Qualifiers: Urinary tract infection type: site unspecified Hematuria presence: without hematuria Qualified Code(s): N39.0 - Urinary tract infection, site not specified (7) Cirrhosis of liver Priority: Secondary Status: Chronic Qualifiers: Hepatic cirrhosis type: unspecified hepatic cirrhosis Ascites presence: with ascites Qualified Code(s): K74.60 - Unspecified cirrhosis of liver (8) Dementia Priority: Secondary Status: Chronic Qualifiers: Dementia type: Alzheimer's disease Alzheimer's disease onset: late-onset Dementia behavioral disturbance: without behavioral disturbance Qualified Code (s): G30.1 - Alzheimer's disease with late onset; F02.80 - Dementia in other diseases classified elsewhere without behavioral disturbance (9) Hypertension Priority: Secondary Status: Chronic Qualifiers: Hypertension type: essential hypertension Qualified Code(s): I10 - Essential (primary) hypertension (10) Hypokalemia Priority: Primary Status: Resolved - Discharge Medications Home Medications: Amlodipine [Norvasc] 7.5 mg PO DAILY 12/02/15 [History] Anagrelide HCl [Agrylin] 1 mg PO BID 12/02/15 [History] Cholecalciferol (Vitamin D3) [Vitamin D] 400 unit PO DAILY 12/02/15 [History] Donepezil [Aricept] 10 mg PO HS 12/02/15 [History] Ferrous Gluconate 325 mg PO DAILY 12/02/15 [History] Melatonin [Melatin] 3 mg PO HS 12/02/15 [History] Memantine [Namenda] 5 mg PO BID 12/02/15 [History] Metoprolol [Lopressor] 12.5 mg PO BID 12/02/15 [History] Pantoprazole Sodium [Protonix] 20 mg PO BID 12/02/15 [History] RisperiDONE [Risperidone Odt] 3 mg PO HS 12/02/15 [History] Tamsulosin [Flomax] 0.4 mg PO DAILY 12/02/15 [History] Acetaminophen [Non-Aspirin] 650 mg PO Q4H PRN 07/23/16 [History] Ipratropium/Albuterol Neb [Duoneb] 3 ml IH Q6HR 07/23/16 [History] Potassium Chloride [K-Tab ER] 20 meq PO DAILY 07/23/16 [History] Sennosides/Docusate Sodium [Senna-Docusate Sodium Tablet] 2 tab PO DAILY [History] Ketoconazole Shampoo [Nizoral Shampoo] 1 appl TP WESA 07/24/16 [History] Oseltamivir [Tamiflu] 75 mg PO DAILY 07/24/16 [History] Vit C/E/Zn/Coppr/Lutein/Zeaxan [Preservision Areds 2 Softgel] 1 tab PO DAILY [History] Allergies/Adverse Reactions: Allergies Penicillins [PCN] Allergy (Verified 12/02/15 09:34) See Comments Unknown reaction. Date of admission: 07/23/16 18:23 [facility] care physician: [facility] Consults: 07/23/16 20:56 Consult to Cardiology [CONS] Routine Comment: Consulting Provider: Cardiology [place] Reason for Consult: Atrial fibrillation with RVR Call Completed: No Consult to Speech Therapy [CONS] Routine Comment: Evaluate, develop and implement POC Reason for Consult: Dysphagia Call Completed: No 07/24/16 11:51 Consult to [employer] [CONS] Routine Reason for SW Consult: Placement 07/25/16 16:45 Consult to Occupational Therapy [CONS] Routine Comment: Evaluate, develop and implement POC Consult to Physical Therapy [CONS] Routine Comment: Evaluate, develop and implement POC 07/26/16 22:04 Consult to Nurse Navigator [CONS] Routine Comment: 07/27/16 09:14 Consult to Palliative Care [CONS] Routine Comment: Code status discussion with guardian Consulting Provider: Palliative Care [place] 07/27/16 09:22 Consult to Infectious Diseases [CONS] Routine Consulting Provider: Infectious Disease [place] Reason for Consult: MDRO Klebsiella UTI, PNA Call Completed: Yes 07/27/16 14:55 Consult to Surgery [CONS] Routine Consulting Provider: Surgery [place] [facility] Reason for Consult: Small bowel necrosis Call Completed: Yes Discharging clinician: Laquita Chavarria Anticipated date of discharge: 08/30/16 - Patient Status Disposition: - Discharge Instructions Follow Up With: [facility] [Primary Care Provider] - (PT IS FROM [facility] THEY WILL SEE PATIENT THERE. NO PCP APPOINTMENT NEEDED) Hospital course: Mr. Burnett is a 86 year old male with the above medical problems including dementia, admitted from retirement due to respiratory failure. He was treated for possible healthcare associated pneumonia and sepsis secondary to UTI. He was started on IV hydration and broad-spectrum IV antibiotics and initially improved significantly. He continued to have some leukocytosis and urine culture eventually grew multidrug resistant organisms. Infectious diseases was consulted to adjust antibiotics. He was also noted to have atrial arrhythmias while in hospital and was initially started on IV anticoagulation along with Cardizem drip for suspected atrial fibrillation. Cardiology was consulted and after reviewing telemetry, recommended to stop the above treatment as patient most likely has multifocal atrial tachycardia due to underlying infection and other medical conditions. Patient continued to have intermittent tachycardia during this hospitalization. Patient was prepared to be discharged, when he became more lethargic and noted to have some respiratory distress. This was thought to be likely secondary to aspiration along with underlying pneumonia and his antibiotic coverage was broadened. He also had mild lactic acidosis along with abdominal distention and worsening renal failure. CT abdomen/pelvis was obtained which showed ischemic small bowel. Surgery was consulted and recommended conservative management as patient is a poor surgical candidate and meaningful recovery is not expected despite aggressive surgery. This has been discussed with the patient's legal guardian, who agreed to change patient's CODE STATUS to DNR/DNI and eventually to DNR/comfort care. Palliative care team has been involved and patient is pending admission to inpatient hospice. However, he early this morning and has been pronounced by the on-call hospitalist physician. - Time Spent with Patient Total time spent providing and/or coordinating discharge services: - Constitutional Vitals: Temp Pulse Resp BP Pulse Ox 103.2 F H 120 20 92/46 75 L 07/29/16 21:31 07/29/16 21:31 07/29/16 21:31 07/29/16 21:31 07/29/16 21:31
== END 2016-07-30 06:30 | disposition expired | DRG 871 ==
LOC: 2NENU 18:23 → SUATTDRO 18:23 → 2NNU 21:31 → 2ANU 07-28 10:44
PROVIDERS: ADMIT Internal Medicine; ATTEND Internal Medicine